=== PATIENT | male | born 1995 | race Caucasian/White ===

== ENCOUNTER 2021-03-07 11:29 | Emergency (ER) | payer OTHER, SELFPAY ==
[2021-03-07 11:33] VITALS: BP 131/77; PULSE 92; RESP 16; TEMP 36.8; O2SAT 98; BMI 33.0
[2021-03-07 12:13] LABS: IDNOW Serial# 9DD0AD1C; Strep A Nucleic Acid Negative (Negative)
--- NOTE | 2021-03-07 12:15 | ED_ITS ---
HPI - General Adult General Chief complaint: General Medical Stated complaint: Sore throat Time Seen by Provider: 03/07/21 11:42 Source: patient Mode of arrival: ambulatory Limitations: no limitations History of Present Illness HPI narrative: 25 y/o male presenting with severe sore throat x2 weeks. He has a longstanding history of Strep throat when he was a teen and in early 20's. He went to an Urgent care when it first started, had a negative Strep test and was given 10 days of amoxicillin. He states the antibiotics helped a little but as soon as he came off of them the pain and swelling worsened. He can see white spots all over his tonsils. He is having a hard time eating or drinking. He denies fever or chills, N/V. No SOB or difficulty breathing. No COVID exposure. MD complaint: sore throat Onset (ago): week(s) (2) Location: mouth Radiation: non-radiation Severity: severe Severity scale (1-10): 10 Quality: constant Pain Consistency: constant Relieving factors: cold therapy and medication Exacerbating factors: eating Associated symptoms: denies other symptoms Treatments prior to arrival: none Related Data Previous Rx's Medication Instructions Recorded amoxicillin 875 mg-potassium 1 tab PO BID #20 tab 02/22/21 clavulanate 125 mg tablet clindamycin HCl 300 mg PO Q6H 10 Days #40 cap 03/07/21 ibuprofen 600 mg PO Q8H PRN #10 tab 03/07/21 prednisone 50 mg PO DAILY #5 tab 03/07/21 Allergies Allergy/AdvReac Type Severity Reaction Status Date / Time No Known Allergies Allergy Verified 02/22/21 10:42 Review of Systems Review of Systems: Constitutional: No Fever, No Chills ENT/Mouth: +sore throat, No Rhinorrhea, + Swallowing Difficulty Cardiovascular: No Chest Pain, No SOB Respiratory: No Cough, No Sputum, No Wheezing, No dyspnea Gastrointestinal: No Nausea, No Vomiting, No abdominal Pain Musculoskeletal: No joint pain, No Myalgias Skin: No Skin Lesions, No rash Neuro: No Weakness, No Numbness Heme/Lymph: No Bruising, No Lymphadenopathy PMFSH Past Medical History Attestation statement: The following information was validated with the patient. Social History Social History Advance Directives: No Advance Directives Information Provided: No Physical Exam Vital Signs: Vital Signs: Last Vital Signs Temp 98.2 F 03/07/21 11:33 Pulse 92 03/07/21 11:33 Resp 17 03/07/21 13:27 BP 131/77 03/07/21 11:33 Pulse Ox 98 03/07/21 11:33 Body Mass Index 33.0 Appearance: Alert. Oriented X3. No acute distress. HEENT: posterior oropharynx with moderate generalized erythema, severe tonsillar swelling bilaterally with exudates. normal voice, handling secretions normally, mild submandibular LAD. CVS: Normal heart rate and rhythm. Pulses normal. Respiratory: No respiratory distress. Lungs CTAB Skin: Skin warm and dry. Normal skin color. Normal skin turgor. No rashes. Extremities: atraumatic, no LE edema Neuro: Oriented X 3. No motor deficit. No sensory deficit. Course Course Course Narrative: 25 y/o male presenting with severe sore throat x2 weeks s/p amoxicillin. Strep negative. [place] negative. No evidence of peritonsillar abscess, swelling is symmetrical and bilateral. Will treat with additional course of antibiotics with Clindamycin and PO steroids. Case d/w Dr. Abrams. No need for CT scan at this time. Patient encouraged to f/u with ENT. Stable for d/c home with close outpatient follow up. Medical Decision Making Lab Data Labs: Lab Results 03/07/21 03/07/21 03/07/21 Range/Units 11:54 11:54 12:29 COVID-19 (TRIP) Negative (Negative) COVID-19 Clin Com See Note Monoscreen Negative (Negative) S. pyogenes GrpA JAIRO Negative (Negative) Critical Care Time Critical Care Time Critical Care Time: No Discharge Plan Discharge Clinical Impression: Pharyngitis Qualifiers: Pharyngitis/tonsillitis etiology: unspecified etiology Qualified Code(s): J02.9 - Acute pharyngitis, unspecified Patient Disposition: Home, Self-Care Instructions: Pharyngitis (ED) Additional Instructions: Your Strep and [place] tests were negative. Start the prescribed antibiotic tonight. Use warm salt water gargles several times per day. Use over the counter Chloraseptic spray and Cepacol lozenges to help numb the back of your throat. Take ibuprofen every 8 hours as needed for pain - take with food. Take the prescribed prednisone starting tomorrow, you were given 1st dose today in the ER. Rest and stay hydrated, drink plenty of water. Prescriptions: New clindamycin HCl 300 mg capsule 300 mg PO Q6H 10 Days Qty: 40 RF: 0 ibuprofen 600 mg tablet 600 mg PO Q8H PRN (Reason: pain) Qty: 10 RF: 0 prednisone 50 mg tablet 50 mg PO DAILY Qty: 5 RF: 0 No Action amoxicillin-pot clavulanate [Augmentin] 875-125 mg tablet 1 tab PO BID Qty: 20 RF: 0 Referrals: Gume Haley [Physician] - 1 week (recurrent pharyngitis) Stand Alone Forms: Work/School Release Interventions: ED Discharge Assessment Last Done: 03/07/21 13:55 Discharge Date/Time: 03/07/21 14:00
[2021-03-07 12:19] LABS: COVID-19 Test Negative (Negative)
[2021-03-07] MEDS: Ketorolac Tromethamine 30 MG/ML VIAL IM (12:25)
[2021-03-07 13:21] LABS: Monotest Negative (Negative)
[2021-03-07 13:27] VITALS: RESP 17
[2021-03-07] MEDS: dexAMETHasone 2 MG TABLET 10 MG PO (13:51)
[2021-03-07] MEDS: Clindamycin HCL 300 MG CAPSULE 600 MG PO (13:51)
== END 2021-03-07 14:00 | disposition home or self-care (01) ==
PROVIDERS: Physician Assistant; Emergency Provider Emergency Medicine
DX: J20.9 Acute bronchitis, unspecified (principal); Z20.822 Contact with and (suspected) exposure to COVID-19
CPT/HCPCS: 36415; 86308; 87635; 87651; 96372; 99283; 99284; J1885; J8540

== ENCOUNTER 2023-04-20 08:05 | Outpatient (AMB) | payer SELFPAY ==
[2023-04-20 08:14] VITALS: BP 132/90; PULSE 77; TEMP 36.6; O2SAT 98
--- NOTE | 2023-04-20 08:15 | MHC.OFFWIV ---
Intake Vital Signs 04/20/23 08:14 Height 6 ft 1 in BP 132/90 H Blood Pressure Location Rt brachial Position Sitting Pulse 77 Pulse Source Pulse Oximeter Temp 97.9 F Temp Source Oral Pulse Oximetry (%) 98 Oxygen Delivery Method Room Air Intake Visit Reasons: EP ?Fungal Infection Intake Note: Pt is here today for fungal infection in groin loco. Patient Tobacco Use Status: Never used Tobacco Allergies No Known Allergies Allergy (Verified 02/22/21 10:42) Do you need a note to return to daycare/school/sports/work: No HPI HPI Comments History of Present Illness Details The patient presents to urgent care for evaluation of redness and scaliness to the tip of his penis. It is not itchy. He has a history of eczema but does not feel that this is eczema. No burning with urination no discharge. Patient like STD testing unrelated to the rash. He reports that he tries to get STD testing every summer [facility] Social History Patient Tobacco Use Status: Never used Tobacco Review of Systems Const Denies headache(s) ENT Denies headache(s) GI Denies abdominal pain and Denies diarrhea Neuro Denies headache(s) Physical Exam Vital Signs: Last Vital Signs Temp 97.9 F 04/20/23 08:14 Pulse 77 04/20/23 08:14 BP 132/90 H 04/20/23 08:14 Pulse Ox 98 04/20/23 08:14 Oxygen Delivery Method Room Air 04/20/23 08:14 Const General: healthy appearing and no acute distress HEENT Head: Yes normal to inspection Resp Effort & Inspection: normal respiratory effort and able to speak in complete sentences GI Inspection: Yes normal to inspection Other: Exam performed with a female certified medical assistant in the room. Circumcised penis. Light erythema noted on the glans slight bumpiness in appearance. non tender no d/c Assessment & Plan Assessment & Plan (1) Tinea cruris: Code(s): B35.6 - Tinea cruris Plan likwy fungal infection. rec OTC fungal crmx 2 wk. will std test as well Orders: Orders Hepatitis C Antibody Today Z71.1 - Person with feared health complaint in whom no diagnosis is made HIV Ab/Ag Today Z20.2 - Contact with and (suspected) exposure to infections with a predominantly sexual mode of transmission Syphilis Screen Today Z20.2 - Contact with and (suspected) exposure to infections with a predominantly sexual mode of transmission CT NG by PCR Today Z20.2 - Contact with and (suspected) exposure to infections with a predominantly sexual mode of transmission Coding Level of Care Code Est Pt Level 3 (79087) Diagnoses Tinea cruris B35.6
== END 2023-04-20 09:21 | disposition home or self-care (01) ==
PROVIDERS: Visit Provider Emergency Medicine
DX: B35.6 Tinea cruris (principal)
CPT/HCPCS: 99213

== ENCOUNTER 2023-04-20 08:32 | Outpatient (REF) | payer SELFPAY ==
[2023-04-21 03:03] LABS: Syphilis Screen Nonreactive (Nonreactive)
[2023-04-21 03:33] LABS: HIV AB/AG Nonreactive (Nonreactive); HIV Num 1 0.05 S/CO (0.00-0.99); ~Hepatitis C Antibody Nonreactive (Nonreactive)
== END 2023-04-20 08:33 | disposition home or self-care (01) ==
LOC: HO.HMGCLDS 08:32
PROVIDERS: Visit Provider Emergency Medicine
DX: Z11.4 Encounter for screening for human immunodeficiency virus [HIV] (principal); Z20.2 Contact with and (suspected) exposure to infections with a predominantly sexual mode of transmission; Z71.1 Person with feared health complaint in whom no diagnosis is made
CPT/HCPCS: 36415; 86780; 86803; 87389

== ENCOUNTER 2023-07-12 08:42 | Emergency (ER) | payer OTHER, SELFPAY ==
--- NOTE | ~2023-07-12 | CT_ITS ---
EXAMINATION: CT SOFT TISSUE NECK WITHOUT CONTRAST CLINICAL INFORMATION: Throat discomfort. Dislodged trachea. COMPARISON: None available. TECHNIQUE: Multidetector helical imaging was performed in the axial plane without intravenous contrast. Multiple axial reformats and coronal/sagittal reconstructions were created the technologist workstation for review. This CT examination was performed using dose optimization techniques as appropriate, variously including the following: *Automated exposure control. *Adjustment of mA and/or kV according to patient size (this includes techniques or standardized protocols for targeted exams where dose is matched to indication/reason for exam; i.e. extremities or head). *Use of iterative reconstruction technique. DLP: 760 mGy-cm FINDINGS: No significant cutaneous thickening or subcutaneous inflammation. No discrete fluid collection within the deep tissues of the neck. The premaxillary, retromaxillary, pterygopalatine fossa, orbital apical, parapharyngeal, and prelaryngeal adipose tissue is maintained. Normal appearance of the parotid, submandibular, and thyroid glands. Scattered subcentimeter lymph nodes bilaterally, none of which are pathologically enlarged. No demonstrated focal lesion within the intrinsic tissues of the tongue or floor of mouth. Normal mucosal contours of the pharynx and larynx. Normal appearance of the hyoid bone, thyroid cartilage, or cartilaginous trachea. The airways remains widely patent. No radiopaque foreign bodies. The atlantooccipital and atlantoaxial articulations remain well aligned. Straightening of the normal cervical lordosis. Otherwise, normal anatomic alignment. No evidence of acute fracture or subluxation of the cervical spine. The vertebral body heights are maintained. Moderate degenerative disc disease at C3-C4. Mild degenerative disc disease at C4-C5. There is no prevertebral soft tissue swelling. The visualized portion of the skull base is without significant abnormalities. The visualized paranasal sinuses are clear. The mastoid air cells and middle ear cavities are clear. No demonstrated significant periapical odontogenic disease. CT Upper Chest: The visualized lung apices and upper mediastinum are within normal limits. CT/CT soft tissue neck wo IV con IMPRESSION: 1. No demonstrated focal lesion, collection, pathologically enlarged lymphadenopathy, or inflammatory change within the soft tissues of the neck. 2. Mild to moderate degenerative spondyloarthropathy of the cervical spine.
[2023-07-12 08:54] VITALS: BP 148/93; PULSE 85; RESP 18; TEMP 36.6; O2SAT 99; BMI 33.0
--- NOTE | 2023-07-12 09:27 | ED_ITS ---
HPI - General Adult General Chief complaint: General Medical Stated complaint: sent by urgent care/ throat tumor? Time Seen by Provider: 07/12/23 09:16 Source: patient Mode of arrival: ambulatory Limitations: no limitations History of Present Illness HPI narrative: 27-year-old male with no significant pmhx presents to the ED today with complaint of throat discomfort x1 month after having a coughing fit where he felt his trachea pop out of place . States he began to panic, felt his trachea poking out of the front of his neck however was able to pop it back into place . Reports hearing a loud popping sound at that time. He was seen at the following morning and was recommended to f/u with PCP for further workup as he my have a throat tumor . Patient states that he has not been able to get into a PCP office until next year. Over the last month patient reports discomfort to his throat, some discomfort with swallowing stating that when he swallows he feels a rubbing sensation in his throat. Additionally endorses his cervical lymphnodes have felt like marbles . This feeling has now resolved. Has been tolerating p.o. intake. No nausea or vomiting. He admits to vaping 1 pod of nicotine a day x2 years. Additionally endorses smoking marijuana. Denies hx of acid reflux. No other physical complaints. Related Data Previous Rx's Medication Instructions Recorded clindamycin HCl 300 mg capsule 300 mg PO Q6H 10 days #40 caps 03/07/21 ibuprofen 600 mg tablet 600 mg PO Q8H PRN pain #10 tabs 03/07/21 prednisone 50 mg tablet 50 mg PO DAILY #5 tabs 03/07/21 Allergies Allergy/AdvReac Type Severity Reaction Status Date / Time No Known Allergies Allergy Verified 07/12/23 09:01 Review of Systems 2 Review of Systems: Constitutional: No fever, chills, fatigue, night sweats, weight changes ENT/Mouth: No ear pain, hearing loss, nasal congestion, sinus pain, rhinorrhea, sore throat, +throat discomfort Eyes: No eye pain, swelling, redness, vision changes, discharge Cardio: No chest pain, palpitations, SEWELL, orthopnea, peripheral edema Pulm: No SOB, cough, sputum, wheezing, dyspnea, hemoptysis GI: No nausea, vomiting, hematemesis, abdominal pain, diarrhea, constipation, hematochezia, melena : No irregular bleeding, dysuria, frequency, urgency, hesitancy, hematuria, flank pain, urinary flow changes, urinary incontinence or retention MSK: No back pain, neck pain, joint pain, myalgias Skin: No lesions, rashes Neuro: No weakness, numbness, paresthesias, LOC, dizziness, headache All other systems reviewed and are negative. [facility] Past Medical History Attestation statement: The following information was validated with the patient. Source: old records reviewed and nursing notes reviewed Social History Social History Unable to assess alcohol history related to: Unknown Patient Tobacco Use Status: Never used Tobacco Smoked in Last 30 Days: No Use of substances other than those prescribed or required for medical reasons: Unknown Advance Directives: No Physical Exam ED Vital Signs: Vital Signs - 24 hr 07/12/23 08:54 07/12/23 10:24 07/12/23 13:57 Temperature 97.9 F 98.8 F 98.8 F Pulse Rate 85 76 72 Respiratory Rate 18 16 16 Blood Pressure 148/93 H 131/81 135/79 Pulse Oximetry 99 97 98 Oxygen Delivery Method Room Air Room Air Room Air 07/12/23 15:23 Temperature Pulse Rate 70 Respiratory Rate 16 Blood Pressure 135/96 H Pulse Oximetry 97 Oxygen Delivery Method Room Air BMI result Body Mass Index 33.0 Vital signs stable Const General: cooperative, healthy appearing, comfortable, no acute distress, alert and awake Orientation/consciousness: patient oriented x3 Limitations: no limitations HENMT Head: Yes normal to inspection Ears: hearing grossly normal bilaterally General nose exam: Normal external nose present Mouth: Normal oral and palatal mucosa present and no trismus Eyes General: appearance normal, both eyes and all related structures Conjunctivae: conjunctivae normal Sclerae: sclerae normal Pupils: Equal, round and reactive pupils present Neck Neck: Yes normal visual inspection, Yes trachea midline, Yes supple and No tender Thyroid: Thyroid normal Lymphatic: no lymphadenopathy noted Resp Effort & Inspection: normal respiratory effort, able to speak in complete sentences and symmetric chest movement Auscultation: clear to auscultation bilaterally Cardio Rate: regular rate Rhythm: regular rhythm Peripheral pulses: radial pulses present Back/Spine/Pelvis Other: No midline spinous tenderness. No step off deformity. Skin General skin exam: no rashes or lesions noted Neuro General: patient oriented x3, gait normal and moves all extremities Cranial nerves: Yes CN's II-XII intact bilaterally and Yes Equal, round and reactive pupils present Extrem General: Yes normal to inspection and Yes full ROM Course Course Course Narrative: 1227-- CBC without leukocytosis or anemia. Chemistry without acute electrolyte abnormality requiring intervention. TSH within normal limits. Awaiting radiologist's interpretation of CT scan. 1306-- Physician observation initiated pending CT read. 1550-- CT soft tissue neck unremarkable. Does show mild degenerative changes of the c spine. Patient informed of unremarkable work up. Advised him to follow up with PCP as scheduled. VSS. Discussed strict return precautions. All questions answered at this time. Patient is agreeable w/ disposition and stable for discharge. Procedures Smoking Cessation Time Spent Discussing Smoking Cessation w/Patient (min): 5 Patient Acknowledges Need for Cessation: Yes Medical Decision Making Medical Decision Making [facility] Narrative: 27-year-old male with no significant pmhx presents to the ED today with complaint of throat discomfort x1 month after having a coughing fit where he felt his trachea pop out of place . VSS. Thyroid normal. Trachea midline. Posterioropharynx without erythema/edema, uvula midline, controlling secretions and speaking in complete sentences. Lungs CTA b/l. No rashes. Exam nonfocal. Clinical concern for thyroid nodule, GERD, cartilage abnormality, esophageal stricture, zenker's diverticulum. Unlikely [employer]ELD[employer]ER, retropharyngeal abscess, carcinoma, airway compromise, barretts esophagus, CVA/TIA, hiatal hernia. Plan at this time is basic labs, TSH, and imaging. Differential Diagnosis Differential Diagnoses: The differential diagnosis associated with the presentation includes As above. Admission/Observation Not included. Lab Data [facility] Lab Attestation statement: I reviewed the patient's lab results. As above. 07/12/23 10:06 07/12/23 10:06 Labs: Lab Results 07/12/23 Range/Units 10:06 WBC 5.8 (4.8-10.8) X10*3/uL RBC 5.07 (4.60-5.80) X10*6/uL Hgb 14.6 (14.0-18.0) g/dl Hct 43.3 (42.0-52.0) % MCV 85.4 (80.0-98.0) fL MCH 28.8 (27.0-33.0) pg MCHC 33.7 (31.0-36.0) g/dl RDW 12.8 (11.0-16.0) % Plt Count 218 (160-400) X10*3/uL MPV 10.8 (9.4-12.4) fL Immature Gran % (Auto) 0.2 (0.0-0.4) % Neut % (Auto) 55.4 (45-73) % Lymph % (Auto) 32.8 (20-40) % Williams % (Auto) 9.0 (2-11) % Eos % (Auto) 2.1 (0-4) % Baso % (Auto) 0.5 (0-2) % Lymph # (Auto) 1.9 (1.2-4.9) X10*3/uL Williams # (Auto) 0.5 (0.1-1.2) X10*3/uL Eos # (Auto) 0.1 (0.0-0.4) X10*3/uL Baso # (Auto) 0.0 (0.0-0.2) X10*3/uL Abs Immat Gran (auto) 0.01 (0.00-0.03) X10*3/uL Absolute Neuts (auto) 3.2 (2.0-8.3) x10*3/uL Absolute Nucleated RBC 0.000 (0.0-0.012) X10*3/uL Nucleated RBC % (auto) 0.0 (0.0-0.2) /100WBC Sodium 140 (135-145) mmol/L Potassium 4.2 (3.3-5.1) mmol/L Chloride 104 (96-108) mmol/L Carbon Dioxide 26 (22-29) mmol/L Anion Gap 14 (12-20) BUN 14 (9-16) mg/dL Creatinine 0.95 (0.5-1.4) mg/dL Estim Creat Clear Calc 152.7 Estimated GFR > 60 Random Glucose 99 (60-115) mg/dL Calcium 9.7 (8.4-10.2) mg/dL Magnesium 2.1 (1.6-2.6) mg/dL TSH 0.97 (0.32-4.0) uIU/mL Independent Interpretation I performed an independent interpretation of an: CT Scan Interpretation: CT soft tissues neck showing degenerative changes within the cervical spine, agree with radiologist's interpretation. Radiology Impression Discussion of test interpretation with radiology: I have reviewed the radiologist's reading. Radiologist Impression: CT soft tissue neck wo IV con IMPRESSION: 1. No demonstrated focal lesion, collection, pathologically enlarged lymphadenopathy, or inflammatory change within the soft tissues of the neck. 2. Mild to moderate degenerative spondyloarthropathy of the cervical spine. External Record Review External record reviewed: Inpatient record Critical Care Time Critical Care Time Critical Care Time: No Discharge Plan Discharge Clinical Impression: Pain in throat Patient Disposition: Home, Self-Care Additional Instructions: Your lab work today is reassuring. We checked your thyroid levels and they returned within normal limits. This CT of your neck did not show acute pathology however did show some degenerative changes within the cervical spine which she were informed about. You were also provided with the CT read. Please follow-up with your primary care physician as needed. You have been provided with a referral to a primary care physician. You may call them to make an appointment. They will not call you. Return to the emergency department if your symptoms persist or worsen. In case of emergency call 911. Prescriptions: No Action clindamycin HCl 300 mg capsule 300 mg PO Q6H 10 Days Qty: 40 0RF ibuprofen 600 mg tablet 600 mg PO Q8H PRN (Reason: pain) Qty: 10 0RF prednisone 50 mg tablet 50 mg PO DAILY Qty: 5 0RF Stand Alone Forms: Work/School Release Interventions: ED Discharge Assessment Last Done: 07/12/23 16:04 Discharge Date/Time: 07/12/23 16:04
[2023-07-12 10:10] LABS: MANUAL DIFF FLAG NO
[2023-07-12 10:12] LABS: Basophils Percent Auto 0.5 % (0-2); Eosinophils Absolute Auto 0.1 X10*3/uL (0.0-0.4); Eosinophils Percent Auto 2.1 % (0-4); Hematocrit 43.3 % (42.0-52.0); Hemoglobin 14.6 g/dl (14.0-18.0); Imm Gran Abs Auto 0.01 X10*3/uL (0.00-0.03); Imm Gran Pct Auto 0.2 % (0.0-0.4); Lymphocytes Absolute Auto 1.9 X10*3/uL (1.2-4.9); Lymphocytes Percent Auto 32.8 % (20-40); Mean Corpuscular HGB Conc 33.7 g/dl (31.0-36.0); Mean Corpuscular Hemoglobin 28.8 pg (27.0-33.0); Mean Corpuscular Volume 85.4 fL (80.0-98.0); Mean Platelet Volume 10.8 fL (9.4-12.4); Monocytes Absolute Auto 0.5 X10*3/uL (0.1-1.2); Neutrophils Absolute Auto 3.2 x10*3/uL (2.0-8.3); Neutrophils Percent Auto 55.4 % (45-73); Platelet Count 218 X10*3/uL (160-400); Red Blood Count 5.07 X10*6/uL (4.60-5.80); Red Cell Distribution Width 12.8 % (11.0-16.0); White Blood Count 5.8 X10*3/uL (4.8-10.8)
[2023-07-12 10:24] VITALS: BP 131/81; PULSE 76; RESP 16; TEMP 37.1; O2SAT 97
[2023-07-12 10:46] LABS: Anion Gap 14 (12-20); Blood Urea Nitrogen 14 mg/dL (9-16); Calcium 9.7 mg/dL (8.4-10.2); Carbon Dioxide 26 mmol/L (22-29); Chloride 104 mmol/L (96-108); Creatinine Clr Calc Pharmacy 152.7; Estimated Glomerular Filt Rate > 60; Glucose Random 99 mg/dL (60-115); Magnesium 2.1 mg/dL (1.6-2.6); Potassium 4.2 mmol/L (3.3-5.1); Sodium 140 mmol/L (135-145)
[2023-07-12 11:00] LABS: TSH reflex Free T4 0.97 uIU/mL (0.32-4.0)
[2023-07-12 13:57] VITALS: BP 135/79; PULSE 72; RESP 16; TEMP 37.1; O2SAT 98
[2023-07-12 15:23] VITALS: BP 135/96; PULSE 70; RESP 16; O2SAT 97
== END 2023-07-12 16:04 | disposition home or self-care (01) ==
PROVIDERS: Physician Assistant Medical; Emergency Provider Emergency Medicine Emergency Medical Services; PCP Internal Medicine
DX: J02.9 Acute pharyngitis, unspecified (principal)
CPT/HCPCS: 36415; 70490; 80048; 83735; 84443; 85025; 99284

== ENCOUNTER 2023-12-29 09:52 | Outpatient (AMB) | payer OTHER, SELFPAY ==
[2023-12-29 09:55] VITALS: BP 118/72; PULSE 81; O2SAT 98; BMI 36.5
--- NOTE | 2023-12-29 09:55 | MHC.PC.OV ---
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 Allergies No Known Allergies Allergy (Verified 12/29/23 10:28) Medication List - Last Reconciled 12/29/23 by Fausto Man MD No Known Home Meds Tobacco use date assessed: 12/29/23 Dental Screening Dental Screen Date: 12/29/23 Did you have a dental visit in the last 12 months?: No Did you have a dental problem in the last 6 months where you did not have access to dental care?: No HPI [employer]-Requesting Physical Exam HPI Details Patient comes in today for his annual physical examination and to establish care - is a new patient to the practice States that he feels okay Relates that back in July 2023, he felt his trachea / Kory's apple pop out of place after a violent coughing fit and he states that he was somehow able to pop it back into place but since then, has been experiencing frequent throat discomfort when swallowing - described it as a recurrent rubbing sensation in his throat especially when he swallows He went to the ER after initially going to urgent care and ended up getting a CT of the soft tissues of the neck, which came out normal States that his throat symptoms have continued to recur since He has tried reaching out to ENT to schedule an appointment but was advised that he will need to see his PCP first due to insurance restrictions He denies any headaches or dizziness; denies any sore throat or any recent cough/cold symptoms Denies any chest pains, no SOB No nausea/vomiting, no abdominal pain No change in bowel habits noted He denies any acute urinary symptoms Adds that he's had some recurrent eczematous rash, especially on his hands Recalls being prescribed some unrecalled eczema cream in the past and he would like to get some Rx that he can use PRN when his eczema flares up [facility] Medical History (Updated 12/29/23 @ 11:03 by Fausto Man MD) Obesity (BMI 30-39.9) Atopic dermatitis Surgical History (Updated 12/29/23 @ 10:37 by Fausto Man MD) Hx of peritonsillar abscess drainage Family History (Updated 12/29/23 @ 10:38 by Fausto Man MD) Paternal Grandfather Prostate cancer Social History (Updated 12/29/23 @ 10:39 by Fausto Man MD) Housing: Condominium Alcohol intake: never Patient Tobacco Use Status: Never used Tobacco Substance Use Type: Marijuana service: No Current occupational status: employed Cognitive needs: No Hearing needs: No Vision needs: No Questionnaire PHQ-9 Over the last 2 weeks, how often have you been bothered by any of the following problems? 1. Little interest or pleasure in doing things: not at all 2. Feeling down, depressed, or hopeless: not at all 3. Trouble falling or staying asleep, or sleeping too much: not at all 4. Feeling tired or having little energy: not at all 5. Poor appetite or overeating: not at all 6. Feeling bad about yourself - or that you are a failure or have let yourself or your family down: not at all 7. Trouble concentrating on things, such as reading the newspaper or watching television: not at all 8. Moving or speaking so slowly that other people could have noticed. Or the opposite - being so fidgety or restless that you have been moving around a lot more than usual: not at all 9. Thoughts that you would be better off or of hurting yourself in some way: not at all Total score: 0 Depression Screening Interpretation: Negative Depression Screening Done: Yes 36005 - PHQ-9 Billing: Yes Source: Developed by Drs. Vance Bates, Daniella Tesfaye, Waldemar Estrada and colleagues, with an educational jeremiah from [email or web address] Thrive Questionnaire Date Thrive assessed: 12/29/23 I am a: Patient What is your living situation today?: I have a steady place to live Within the past 12 months, did the food you bought not last and you didn't have the money to get more?: Never true Within the past 12 months, did you worry whether your food would run out before you got money to buy more?: Never true Do you have trouble paying for medicines?: No Do you have trouble getting transportation to medical appointments?: No Do you have trouble paying your heating and electricity bill?: No Do you have trouble taking care of your child, family member or friend?: No Do you have trouble with day-to-day activities such as bathing, preparing meals, shopping, managing finances, etc.?: No Are you currently unemployed and looking for a job?: No Are you interested in more education?: No Please select the resources that you would like help with: None Currently or been in a relationship where the following occur: no concerns reported THRIVE Score: 0 AUDIT C Alcohol Use Questionnaire (AUDIT-C) 1. How often do you have a drink containing alcohol?: Never 2. How many drinks containing alcohol do you have on a typical day when you are drinking?: 1 or 2 (0) 3. How often do you have six or more drinks on one occasion?: Never Total Score: 0 Score Reviewed/Action Taken: Yes CASIE-7 AMB Questionnaire CASIE-7 Date CASIE - 7 assessed: 12/29/23 Feeling nervous, anxious, or on edge: 0 = Not at all Not being able to stop or control worryin = Not at all Worrying too much about different things: 0 = Not at all Trouble relaxin = Not at all Being so restless that it is hard to sit still: 0 = Not at all Becoming easily annoyed or irritable: 0 = Not at all Feeling afraid as if something awful might happen: 0 = Not at all Total CASIE-7 score (0-4 normal; 5-9 mild; 10-14 moderate; 15-21 severe): 0 Source: Developed by Drs. Vance Bates, Daniella Tesfaye, Waldemar Estrada and colleagues, with an educational jeremiah from [email or web address] CASIE-7 Assessment Billing CASIE-7 Assessment Tool: CASIE-7 Assessment 19402 Review of Systems Const Denies chills, Denies fatigue, Denies fever(s), Denies headache(s), Denies malaise and Denies weakness Eyes Denies blurry vision, Denies change in vision, Denies irritation and Denies itchy eyes ENT Denies dysphagia, Denies dizziness, Denies otalgia, Denies headache(s), Denies nasal congestion, Denies neck pain, Denies odynophagia, Denies sore throat (but reports on and off throat discomfort - see HPI for details) and Denies throat swelling Card Denies chest pain, Denies rapid heart rate, Denies irregular heart rhythm, Denies palpitations and Denies dyspnea Resp Denies chest congestion, Denies cough, Denies dyspnea and Denies wheezing GI Denies abdominal pain, Denies bloating, Denies constipation, Denies dysphagia, Denies heartburn, Denies diarrhea, Denies nausea, Denies odynophagia and Denies vomiting Denies hematuria, Denies difficulty urinating, Denies dysuria, Denies urinary frequency and Denies urinary urgency Musc Denies back pain, Denies arthralgias, Denies joint swelling, Denies muscle weakness and Denies neck pain Skin/Breast Denies change in pigmentation, Denies lesions, Reports rash (on and off eczematous rash) and Denies unusual bruising Neuro Denies dizziness, Denies headache(s), Denies paresthesias and Denies weakness Psych Denies anxiety and Denies depression Endo Denies fatigue and Denies palpitations Aller/Immun Denies itchy eyes, Denies throat swelling and Denies wheezing Physical exam (Primary Care) Vital Signs: Last Vital Signs Pulse 81 12/29/23 09:55 BP 118/72 12/29/23 09:55 Pulse Ox 98 12/29/23 09:55 Oxygen Delivery Method Room Air 12/29/23 09:55 BMI result Body Mass Index 36.5 Tobacco/Smoking Status: Tobacco use Status Tobacco use date assessed 12/29/23 12/29/23 09:57 Patient Tobacco Use Status Never used Tobacco 12/29/23 10:07 PHQ-9: PHQ-9 Score PHQ-9: Total score 0 12/29/23 10:07 Depression Screening Interpretation: Negative Thrive Assessment: Date of Thrive Assessment Date Thrive assessed 12/29/23 12/29/23 09:57 Currently or been in a relationship where the following occur: no concerns reported Const General: no acute distress, alert and awake Orientation/consciousness: patient oriented x3 HENMT Head: Yes normocephalic and Yes atraumatic Ears: external ears normal, TM's normal bilaterally and EAC's normal General nose exam: No nasal discharge present Face and sinus: Yes normal facial exam and Yes sinuses nontender Teeth and gingiva: dentition normal Throat: Yes posterior oropharynx normal and Yes tonsils normal (no TP congestion) Eyes Eyelids: Yes eyelids normal Conjunctivae: conjunctivae normal Pupils: Equal, round and reactive pupils present EOM: EOMs intact bilaterally Neck Neck: Yes no lymphadenopathy and Yes supple Thyroid: Thyroid normal Resp Auscultation: clear to auscultation bilaterally, no rales and no wheezes Cardio Rate: regular rate Rhythm: regular rhythm Heart sounds: no murmurs GI Palpation (GI): Soft to palpation, nontender and No hepatosplenomegaly present Auscultation: normal bowel sounds General: Yes no CVA tenderness Back/Spine/Pelvis Back: no CVA tenderness Thoracic/Lumbar Spine: thoracic and lumbar spine normal to inspection Skin Lesions: no lesions Rashes: no rashes Neuro General: patient oriented x3, moves all extremities, no focal motor deficits and CN's II-XI intact bilaterally Cranial nerves: Yes Equal, round and reactive pupils present Cognition (Neuro): normal cognition Gait exam (Neuro): Normal gait present Extrem General: Yes no clubbing, cyanosis or edema Assessment and Plan Assessment & Plan (1) Annual physical exam: Code(s): Z00.00 - Encounter for general adult medical examination without abnormal findings Plan: Check labs He is advised that we will reach out to him if anything pertinent or significant comes up on his labs (2) Throat discomfort: Code(s): R07.0 - Pain in throat Plan: Soft tissues neck CT done back in July 2023 revealed NO demonstrated focal lesion, collection, pathologically enlarged lymphadenopathy, or inflammatory change within the soft tissues of the neck. There is mild to moderate degenerative spondyloarthropathy of the cervical spine noted Will refer him to ENT for further evaluation - may need direct laryngoscopy done to further evaluate his recurrent throat symptoms Have also advised patient to try to obtain a hard copy of his neck CT and bring it with him to his ENT appointment (3) Atopic dermatitis: Code(s): L20.9 - Atopic dermatitis, unspecified Qualifiers: Atopic dermatitis type: unspecified Qualified Code(s): L20.9 - Atopic dermatitis, unspecified Plan: Will start patient on Triamcinolone acetonide 0.5% cream apply to rash BID-TID PRN (4) Obesity (BMI 30-39.9): Code(s): E66.9 - Obesity, unspecified Plan: Discussed diet/exercise as tolerated/lose weight Plan To return in 1 year for his next annual physical examination Orders: Orders Complete Blood Count Auto Diff Today D64.9 - Anemia, unspecified, Z00.00 - Encounter for general adult medical examination without abnormal findings Comprehensive [place]. Panel Fast Today E78.00 - Pure hypercholesterolemia, unspecified, Z00.00 - Encounter for general adult medical examination without abnormal findings Lipid Panel Today E78.00 - Pure hypercholesterolemia, unspecified, Z00.00 - Encounter for general adult medical examination without abnormal findings UA CC w/rflx Micro + Cult Today R30.0 - Dysuria, Z00.00 - Encounter for general adult medical examination without abnormal findings TSH reflex Free T4 Today E78.00 - Pure hypercholesterolemia, unspecified, Z00.00 - Encounter for general adult medical examination without abnormal findings Vitamin D 25-OH Total Today E55.9 - Vitamin D deficiency, unspecified, Z00.00 - Encounter for general adult medical examination without abnormal findings Referrals Ear/Nose/Throat Referral R07.0 - Pain in throat, R13.10 - Dysphagia, unspecified Medications: New triamcinolone acetonide 0.5% 1 appl topical TID PRN 30 grams 2RF rash Coding Level of Care Code New Pt Prev Care 18-39yr(70987 Diagnoses Annual physical exam Z00.00 Throat discomfort R07.0 Atopic dermatitis, unspecified type L20.9 Atopic dermatitis type: unspecified Obesity (BMI 30-39.9) E66.9 Additional Codes CASIE-7 Assessment Billing - CASIE-7 Assessment Tool: CASIE-7 Assessment 44336 ([id number])
== END 2023-12-29 10:50 | disposition home or self-care (01) ==
PROVIDERS: PCP Internal Medicine; Visit Provider Internal Medicine
DX: Z00.00 Encounter for general adult medical examination without abnormal findings (principal); R07.0 Pain in throat; E66.9 Obesity, unspecified; Z68.36 Body mass index [BMI] 36.0-36.9, adult; L20.9 Atopic dermatitis, unspecified
CPT/HCPCS: 99395

== ENCOUNTER 2024-02-02 12:46 | Outpatient (REF) | payer OTHER, SELFPAY ==
[2024-02-02 13:04] LABS: MANUAL DIFF FLAG NO
[2024-02-02 14:27] LABS: Appearance Urine Clear; Color Urine Yellow; Glucose Urine UA Negative (Negative); Leukocyte Esterase Urine Negative (Negative); Nitrite Urine Negative (Negative); PH 5.5 (5.0-9.0); Specific Gravity - Urine 1.015 (1.005-1.025); Urine Blood Negative (Negative); Urine Ketones Negative (Negative); Urine Protein Negative (Neg-Trace)
[2024-02-02 14:29] LABS: Basophils Percent Auto 0.4 % (0-2); Eosinophils Absolute Auto 0.1 X10*3/uL (0.0-0.4); Eosinophils Percent Auto 1.6 % (0-4); Hematocrit 42.9 % (42.0-52.0); Hemoglobin 14.6 g/dl (14.0-18.0); Imm Gran Abs Auto 0.01 X10*3/uL (0.00-0.03); Imm Gran Pct Auto 0.2 % (0.0-0.4); Lymphocytes Absolute Auto 2.6 X10*3/uL (1.2-4.9); Lymphocytes Percent Auto 47.9 % (20-40); Mean Corpuscular Hemoglobin 29.2 pg (27.0-33.0); Mean Corpuscular Volume 85.8 fL (80.0-98.0); Monocytes Absolute Auto 0.4 X10*3/uL (0.1-1.2); Monocytes Percent Auto 6.9 % (2-11); Neutrophils Absolute Auto 2.4 x10*3/uL (2.0-8.3); Platelet Count 239 X10*3/uL (160-400); Red Cell Distribution Width 12.9 % (11.0-16.0); White Blood Count 5.5 X10*3/uL (4.8-10.8)
[2024-02-02 15:07] LABS: Alanine Aminotransferase 35 U/L (0-40); Albumin Level 4.5 g/dL (3.5-5.0); Alkaline Phosphatase 44 U/L (39-117); Anion Gap 11 (12-20); Aspartate Amino Transferase 22 U/L (5-37); Bilirubin Total 0.8 mg/dL (0.0-1.0); Blood Urea Nitrogen 8 mg/dL (9-16); Calcium 9.5 mg/dL (8.4-10.2); Carbon Dioxide 26 mmol/L (22-29); Chloride 107 mmol/L (96-108); Cholesterol 144 mg/dL (<200); Estimated Glomerular Filt Rate > 60; Glucose Fasting 84 mg/dL (60-99); HDL Cholesterol 32 mg/dL (>40); LDL Cholesterol Calculated 90 mg/dL (<100); Potassium 3.9 mmol/L (3.3-5.1); Sodium 140 mmol/L (135-145); Total Protein 7.7 g/dL (6.5-8.0); Triglycerides 111 mg/dL (<150)
[2024-02-02 15:09] LABS: TSH reflex Free T4 0.95 uIU/mL (0.32-4.0); Vitamin D 25-OH Total 14.9 ng/mL (>30)
== END 2024-02-02 12:47 | disposition home or self-care (01) ==
LOC: HO.LAB 12:46
PROVIDERS: PCP Internal Medicine; Visit Provider Internal Medicine
DX: Z00.00 Encounter for general adult medical examination without abnormal findings (principal); D64.9 Anemia, unspecified; E78.00 Pure hypercholesterolemia, unspecified; E55.9 Vitamin D deficiency, unspecified; R30.0 Dysuria; Z20.2 Contact with and (suspected) exposure to infections with a predominantly sexual mode of transmission
CPT/HCPCS: 36415; 80053; 80061; 81003; 82306; 84443; 85025

== ENCOUNTER 2024-02-10 07:34 | Outpatient (REF) | payer OTHER, SELFPAY ==
[2024-02-12 04:22] LABS: Syphilis Screen Nonreactive (Nonreactive)
[2024-02-12 04:32] LABS: HBc Num1 0.11 S/CO (0.00-0.79); HBsAGNum1 0.24 S/CO (0.00-0.99); HIV AB/AG Nonreactive (Nonreactive); HIV Num 1 0.07 S/CO (0.00-0.99); Hepatitis B Core Antibody Nonreactive (Nonreactive); Hepatitis B Surface Antigen Negative (Negative); ~HepC Num1 0.13 S/CO (0.00-0.79); ~Hepatitis B Surface Antibody REACTIVE (Nonreactive); ~Hepatitis C Antibody Nonreactive (Nonreactive)
== END 2024-02-10 07:35 | disposition home or self-care (01) ==
LOC: HO.LAB 07:34
PROVIDERS: PCP Internal Medicine; Visit Provider Internal Medicine
DX: Z20.2 Contact with and (suspected) exposure to infections with a predominantly sexual mode of transmission (principal)
CPT/HCPCS: 36415; 86704; 86706; 86780; 86803; 87340; 87389

== ENCOUNTER 2024-02-20 12:24 | Outpatient (AMB) | payer OTHER, SELFPAY ==
[2024-02-20 12:45] VITALS: BP 126/72; PULSE 71; TEMP 36.8; O2SAT 98; BMI 37.5
--- NOTE | 2024-02-20 12:45 | AM.OFFWIN_ITS ---
Intake Vital Signs 02/20/24 12:45 Height 6 ft 1 in Weight 284 lb BMI 37.5 BP 126/72 Blood Pressure Location Lt brachial Position Sitting Pulse 71 Pulse Source Pulse Oximeter Temp 98.3 F Temp Source Temporal Artery Scan Pulse Oximetry (%) 98 Oxygen Delivery Method Room Air Intake Visit Reasons: Eczema all over body Intake Note: pt is here today for eczema all over body started 3 days ago Patient Tobacco Use Status: Never used Tobacco Allergies No Known Allergies Allergy (Verified 02/20/24 13:42) Medication List - Last Reconciled 02/20/24 by CARLOS De León cholecalciferol (vitamin D3) 50 mcg PO DAILY 90 days triamcinolone acetonide 0.5% 1 appl topical TID PRN Do you need a note to return to daycare/school/sports/work: No HPI HPI Comments History of Present Illness Details patient is a 28-year-old male in today for sick visit. Patient reports that for the past 2 weeks he has developed eczema on his hands and back. Has history of eczema in the past states that it usually is contained to his hands however he has noticed patches and spots on his back. Does have triamcinolone prescription at home has been utilizing it for spot treatment feels like it has cause the eczema to stop spreading however it has not improved. Patient denies any tingling or numbness. Denies any drainage from the lesions. [facility] Medical History Obesity (BMI 30-39.9) Atopic dermatitis Surgical History Hx of peritonsillar abscess drainage Family History Paternal Grandfather Prostate cancer Social History Housing: Condominium Alcohol intake: never Patient Tobacco Use Status: Never used Tobacco Substance Use Type: Marijuana service: No Current occupational status: employed Cognitive needs: No Hearing needs: No Vision needs: No Review of Systems Const All systems reviewed & are unremarkable except as noted in HPI and below Physical Exam Vital Signs: Last Vital Signs Temp 98.3 F 02/20/24 12:45 Pulse 71 02/20/24 12:45 BP 126/72 02/20/24 12:45 Pulse Ox 98 02/20/24 12:45 Oxygen Delivery Method Room Air 02/20/24 12:45 BMI result Body Mass Index 37.5 Const Other: Appearance: Alert.? Oriented X3.? No acute distress.? Neck: Normal inspection.? Neck supple.? Respiratory: No respiratory distress.? Abdomen: Soft and nontender.? Skin: Skin warm and dry.? Normal skin color.? Normal skin turgor.? Extremities: Smal dime sized lesions, scaling, raised, on bilateral hands and back. No discharge or signs of infeciton. Neuro: Oriented X 3.? No motor deficit.? No sensory deficit. CN 2-12 intact Assessment & Plan Assessment & Plan (1) Atopic dermatitis: Comment: Will give patient prednisone taper. Patient has been instructed to continue using triamcinolone for topical spot treatment. Patient has been instructed to follow-up in the walk-in clinic if does not notice improvement over the next 3 days. Code(s): L20.9 - Atopic dermatitis, unspecified Qualifiers: Atopic dermatitis type: unspecified Qualified Code(s): L20.9 - Atopic dermatitis, unspecified Plan: Insert Medicare Medications: New prednisone 10 mg orally Take 4 tabs for four days, Take 2 tabs for four days, take 1 tab for four days.; see taper instructions 28 tabs 0RF Coding Level of Care Code Est Pt Level 3 (63954) Diagnoses Atopic dermatitis, unspecified type L20.9 Atopic dermatitis type: unspecified Time Spent (min) 21
== END 2024-02-20 13:57 | disposition home or self-care (01) ==
PROVIDERS: PCP Internal Medicine; Visit Provider Nurse Practitioner Primary Care
DX: L20.9 Atopic dermatitis, unspecified (principal)
CPT/HCPCS: 99213

== ENCOUNTER 2024-03-25 12:23 | Outpatient (AMB) | payer OTHER, SELFPAY ==
--- NOTE | 2024-03-25 12:29 | MHC.OFFWIV ---
Intake Vital Signs 03/25/24 12:30 Height 6 ft 1 in Weight 293 lb BMI 38.7 Pulse 77 Pulse Source Pulse Oximeter Temp 98 F Temp Source Oral Pulse Oximetry (%) 96 Oxygen Delivery Method Room Air Intake Visit Reasons: EP eczema spreading Intake Note: Pt is here today for Eczema on back and torso, noticed few days ago Patient Tobacco Use Status: Never used Tobacco Allergies No Known Allergies Allergy (Verified 03/25/24 12:31) Do you need a note to return to daycare/school/sports/work: No HPI HPI Comments History of Present Illness Details Patient presents to the walk-in today for sick visit complaining of head, to chest and back for last couple of days was evaluated here 1 month ago for same, given prednisone and symptoms resolved. Does work outside in the heat denies any other rash, fever, dizziness, weakness, chest pain, shortness of breath PFSH Medical History Obesity (BMI 30-39.9) Atopic dermatitis Surgical History Hx of peritonsillar abscess drainage Family History Paternal Grandfather Prostate cancer Social History Housing: Condominium Alcohol intake: never Patient Tobacco Use Status: Never used Tobacco Substance Use Type: Marijuana service: No Current occupational status: employed Cognitive needs: No Hearing needs: No Vision needs: No Review of Systems Const All systems reviewed & are unremarkable except as noted in HPI and below Physical Exam Vital Signs: Last Vital Signs Temp 98 F 03/25/24 12:30 Pulse 77 03/25/24 12:30 Pulse Ox 96 03/25/24 12:30 Oxygen Delivery Method Room Air 03/25/24 12:30 BMI result Body Mass Index 38.7 General: awake, alert, oriented. Answers questions appropriately. Fully engaged in examination. Skin: warm, dry, intact. diffuse macular papular rash noted to back and upper torso. No drainage, surrounding erythema or lymphadenopathy HEENT: Normocephalic. Hearing intact. Cardiac: External chest normal in appearance. Respiratory: No cough, audible wheezing or stridor. Abdomen: without gross distension. MS: No obvious swelling or deformities. Neurological: Oriented to person, place, time and situation. Thought process intact. No gait abnormalities appreciated. Psychiatric: Appropriate mood and affect. Good judgment and insight. Assessment & Plan Assessment & Plan (1) Dermatitis: Code(s): L30.9 - Dermatitis, unspecified Plan prednisone taper provided, patient advised on use follow up with Dermatology. All questions and concerns were answered, patient agrees with the plan. Return here for any new or worsening symptoms Medications: New prednisone see taper instructions orally daily; 4 tabl x 3days, 3 tabl daily x 3 days, then 2 tabl daily for 2 days, then 1 tabl daily x 3 days 10 mg PO DIRECTED 30 tabs 0RF Coding Level of Care Code Est Pt Level 3 (80298) Diagnoses Dermatitis L30.9
[2024-03-25 12:30] VITALS: PULSE 77; TEMP 36.6; O2SAT 96; BMI 38.7
== END 2024-03-25 13:54 | disposition home or self-care (01) ==
PROVIDERS: PCP Internal Medicine; Visit Provider Registered Nurse Emergency
DX: L30.9 Dermatitis, unspecified (principal)
CPT/HCPCS: 99213

== ENCOUNTER 2024-10-11 13:11 | Outpatient (AMB) | payer OTHER, SELFPAY ==
--- OUTSIDE RECORDS SUMMARY | 2024-10-11 13:27 | XMS_ITS | Data Portability ---
Author Organization [place] - [facility], Allergy Address [address] [address] Care Team Providers Care Estimator Binding Name Role Phone DEANNE NUÑEZ Referring Provider Assessment No assessment recorded. Plan of Treatment Reminders Order Date Submit Date Provider Last Modified By Organization Details Last Modified Time Details Appointments None record ed. Lab None record ed. Referral None record ed. Procedures None record ed. Surgeries None record ed. Imaging None record ed. Medication Orders None record ed. Patient TargetsNo targets recorded. Patient InstructionsNo instructions recorded. Reason for Referral None Reported. Results Created Date Observation Date Name Description Value Unit Range Abnormal Flag Note LastModifiedBy Organization Detail LastModifiedTime 07/11/2007/12/2023 CT, neck, soft tissu e, w/o contr ast No observ ation record ed. [email or web address] [facility] [address] [facility] [address], [place], [address], 07/12/2024 08:57:14 07/12/20 24 07/12/2023 CT, neck, soft tissu e, w/o contr ast No observ ation record ed. [email or web address] Not Available 01/2024 09:04:33 Result Notes None recorded. 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 Procedures Surgical History Date Name Laterality Status Provider Name and Address Organization Details Recorded Time 07/11/2024 FFL_RE completed MARCOS BARTHOLOMEW MD [address] [place] [address], [place], [address], [facility] 07/11/2024 11:49:39 Imaging Results Imaging Date Name Status LastModified by Organiz ation Details LastModified Time 07/12/2023 CT, neck, soft tissue, w/o contrast completed [email or web address] [facility] [address] [address], [place], [address], 07/12/2024 08:57:14 07/12/2023 CT, neck, soft tissue, w/o contrast completed [email or web address] Information not available 07/16/2024 09:04:33 Procedure Notes None recorded. Medical Equipment None Reported. Medications Name Sig Start Date Stop Date Status Note LastModified by Organization Details LastModified Time triamcinolone acetonide 0.5 % topical cream active Not Available Not Availabl e Not Available Vitals Date Recorded Body height Body mass index (BMI) Body weight Provider Name and Address Organization Details Last Updated DateTime 07/11/2024 185.42 cm 39.6 kg/m2 906477.71 g Erin Torres [place] - [facility] 07/11/2024 11:28:26 Social History None recorded. Functional Status None recorded. Mental Status None recorded. Family History Nothing Reported. Medical History No medical history recorded. Past Encounters Encounter ID Performer Location Encounter Start Date Encounter Closed Date Diagnosis/Indication Diagnosis SNOMED-CT Code Diagnosis ICD10 Code Diagnosis Note [id number] MARCOS BARTHOLOMEW MD [facility] [address] [place] [address] 07/11/2024 11:10:11 07/11/2024 12:01:59 Disorder of the larynx 33744408 J38.7 He may have had a muscle spasm of a strap or other neck muscle. Exam of larynx today including external neck exam and laryngosco py are normal. I gave ressurance and recommend observatio n. Neck pain 92722380 M54.2 resolved Health Concerns Section Related Observation LastModified by Organization Detai ls LastModified Time None Recorded Concern Status LastModified by Organization Details LastModified Time None Recorded Advance Directives Directive None Recorded Payers Encounter Date Sequence Insurance Name Policy Number Policy Lee Covered Member ID Lee Member ID Guarantor Name 07/11/2024 1 [facility] [employer] [facility] (O) [id number] Andrea Gimenez Roney [id number] Andrea Sim Notes Date Note Type Note Provider Name and Address Organization Details Recorded Time 07/11/2024 text/html 1 year ago when he was stretching with his neck extended and he started to cough. He noted bulging of his thyroid cartilage. He applied pressure to his thyroid cartilage and felt a pop. He had a vagal reaction after this happened. It has taken a long time to improve. He still has occasional tightness in his throat. He feels like he may have some laxity in his larynx and sometimes he has to apply pressure to his throat when this happens. He denies pain but sometimes he feels a tension in his throat. He smokes less than he used to but still smokes nicotine and cannabis. He had some CT scans at [facility]. No dysphagia. No current voice change. MARCOS BARTHOLOMEW MD [address] [place] [address], [phone], [place] - [facility] 07/11/2024 12:02:34
[2024-10-11 13:29] VITALS: BP 116/80; PULSE 83; O2SAT 98
--- NOTE | 2024-10-11 13:29 | AM.OFFWIN_ITS ---
Intake Vital Signs 10/11/24 13:29 Weight 291 lb BP 116/80 Blood Pressure Location Lt brachial Position Sitting Pulse 83 Pulse Source Pulse Oximeter Pulse Oximetry (%) 98 Oxygen Delivery Method Room Air Intake Visit Reasons: EP Neck pain Intake Note: Patient here for neck pain that has been present for a couple of days. Patient Tobacco Use Status: Never used Tobacco Allergies No Known Allergies Allergy (Verified 10/11/24 13:35) Do you need a note to return to daycare/school/sports/work: No HPI HPI Comments History of Present Illness Details This is a 29-year-old male who presented to the walk-in clinic complaining of posterior neck pain x1 week. Patient states he has a history of a ? laryngeal dislocation (states he dislocated his viviana's apple) approximately 1 year ago. He states this occurred while doing a back stretch and coughing. He states he self reduced this injury and went to an emergency room for further evaluation and he was referred to an ENT. Patient states recently saw his ENT who recommended gentle range of motion stretches but did not recommend any physical therapy or adult care manager. He states he recently started doing neck stretches and exercises. He states he added a new exercise about 1 week ago. Since then, he has been having some posterior neck pain. He denies any numbness/weakness/paresthesias of his upper extremities. Otherwise denies any trauma or injury. He is otherwise feeling well and at his baseline. [facility] Medical History Obesity (BMI 30-39.9) Atopic dermatitis Surgical History Hx of peritonsillar abscess drainage Family History Paternal Grandfather Prostate cancer Social History Housing: Condominium Alcohol intake: never Patient Tobacco Use Status: Never used Tobacco Substance Use Type: Marijuana service: No Current occupational status: employed Cognitive needs: No Hearing needs: No Vision needs: No Review of Systems Const All systems reviewed & are unremarkable except as noted in HPI and below Reports no additional complaints Eyes Reports no additional complaints ENT Reports no additional complaints Card Reports no additional complaints Resp Reports no additional complaints GI Reports no additional complaints Reports no additional complaints Musc Reports no additional complaints Skin/Breast Reports system reviewed and no additional complaints, except as documented Neuro Reports no additional complaints Psych Reports no additional complaints Endo Reports no additional complaints Brigido/Lymph Reports no additional complaints Aller/Immun Reports no additional complaints Physical Exam Const Other: Vital signs reviewed. Constitutional: Non-toxic appearing. No acute distress. Well-developed and well-nourished. HEENT: Normocephalic and atraumatic. Skin: Warm and dry. No rashes or lesions noted. Neck: Full and painless range of motion. No cervical lymphadenopathy. Cardio: Regular rate. No lower extremity edema. No JVD. Pulmonary: No respiratory distress. No accessory muscle usage. Musculoskeletal: Normal range of motion in joints throughout the body. No deformity or other signs of injury. No cervical spinous process tenderness to palpation or tenderness to palpation or muscle spasms of the cervical paraspinal musculature. Neuro: Alert and oriented x4. Cranial nerves 2-12 grossly intact. No focal deficits appreciated. Psych: Normal mood and affect. Assessment & Plan Assessment & Plan (1) Neck pain: Code(s): M54.2 - Cervicalgia Plan: This is a 29-year-old male who presented to the walk-in clinic complaining of posterior neck pain x1 week. He has a history of a ? laryngeal dislocation about 1 year ago and recently followed up with an ENT who recommended starting gentle range of motion and stretching exercises, which patient started about 1 week ago. Since then, patient has been having mild posterior neck pain without any radicular symptoms. Patient's symptoms appear to be related to a musculoskeletal etiology such as a cervical sprain/strain. A cervical spine x- ray was obtained to rule out cervical dislocation given patient's history and his cervical spine x-ray appears to be within normal limits. Recommended supportive management including rest/activity modification, ice/heat to the area, and PO acetaminophen/ibuprofen for pain management. Patient was advised to follow-up here if his symptoms were to persist/worsen. Additionally, he was advised to follow up with the emergency room if he were to develop any numbness/weakness/paresthesias of his upper extremities or if he were to develop any other concerning symptoms. Patient verbalizes understanding and he is in agreement with the plan. Orders: Orders XR cervical spine 2V Today M54.2 - Cervicalgia Coding Level of Care Code Est Pt Level 3 (60579) Diagnoses Neck pain M54.2
== END 2024-10-11 14:46 | disposition home or self-care (01) ==
PROVIDERS: PCP Internal Medicine; Visit Provider Physician Assistant Medical
DX: M54.2 Cervicalgia (principal)

== ENCOUNTER 2024-10-11 13:11 | Outpatient (REF) | payer OTHER, SELFPAY ==
--- NOTE | ~2024-10-11 | XR_ITS ---
CLINICAL HISTORY: M54.2 - Cervicalgia 2 views cervical spine Comparison: None Findings: Normal vertebral body alignment. No acute fractures or dislocation. No significant degenerative change. Prevertebral soft tissues within normal limits. IMPRESSION: No acute findings. This document has been electronically signed by: Erica Kiser MD on 10/11/2024 14:43:42
== END 2024-10-11 13:12 | disposition home or self-care (01) ==
LOC: HO.HMGCX 13:11
PROVIDERS: PCP Internal Medicine; Visit Provider Physician Assistant Medical
DX: M54.2 Cervicalgia (principal)
CPT/HCPCS: 72040; 99212

== ENCOUNTER → 2024-10-11 13:53 | Outpatient (BNV) | payer OTHER, SELFPAY | PROVIDERS: PCP Internal Medicine; Visit Provider Radiology Diagnostic Radiology | DX: M54.2 Cervicalgia (principal) | CPT/HCPCS: 72040 ==

== ENCOUNTER 2024-12-16 08:42 | Outpatient (AMB) | payer OTHER, SELFPAY ==
[2024-12-16 09:28] VITALS: BP 120/80; PULSE 82; O2SAT 98; BMI 36.5
--- NOTE | 2024-12-16 09:28 | MHC.OFFWIV ---
Intake Vital Signs 12/16/24 09:28 Height 6 ft 1 in Weight 277 lb BMI 36.5 BP 120/80 Blood Pressure Location Lt brachial Position Sitting Pulse 82 Pulse Source Pulse Oximeter Pulse Oximetry (%) 98 Oxygen Delivery Method Room Air Intake Visit Reasons: EP stomach pain Intake Note: Patient here for stomach pain that has been present for about 2 weeks and progressively worsening. Patient Tobacco Use Status: Never used Tobacco Allergies No Known Allergies Allergy (Verified 12/16/24 09:30) Do you need a note to return to daycare/school/sports/work: No HPI HPI Comments History of Present Illness Details 29 y/o Male patient who presents to the walk in clinic with c/o Stomach discomfort for 2 weeks now. Reports Pain is located Epigastric region. Denies Nausea, vomiting, Chills and Fevers. Denies constipation or Diarrhea. [facility] Medical History (Updated 12/16/24 @ 09:59 by Negrita Leyva NP) Gastritis Obesity (BMI 30-39.9) Atopic dermatitis Surgical History Hx of peritonsillar abscess drainage Family History Paternal Grandfather Prostate cancer Social History Housing: Condominium Alcohol intake: never Patient Tobacco Use Status: Never used Tobacco Substance Use Type: Marijuana service: No Current occupational status: employed Cognitive needs: No Hearing needs: No Vision needs: No Review of Systems Const All systems reviewed & are unremarkable except as noted in HPI and below Physical Exam Vital Signs: Last Vital Signs Pulse 82 12/16/24 09:28 BP 120/80 12/16/24 09:28 Pulse Ox 98 12/16/24 09:28 Oxygen Delivery Method Room Air 12/16/24 09:28 BMI result Body Mass Index 36.5 Const General: no acute distress Nutritional Appearance: obese Orientation/consciousness: patient oriented x3 Resp Effort & Inspection: normal respiratory effort Auscultation: clear to auscultation bilaterally Cardio Heart sounds: S1 normal heart sound present and S2 normal heart sound present GI Inspection: Yes Abdominal panniculus present and Yes obesity Palpation (GI): Soft to palpation, not firm, Tenderness to palpation present (GI) in the epigastrum, no guarding, not rigid and No hepatosplenomegaly present Auscultation: normal bowel sounds Neuro General: patient oriented x3, gait normal and moves all extremities Psych Speech and movement: Normal speech and movement present Assessment & Plan Assessment & Plan (1) Gastritis: Code(s): K29.70 - Gastritis, unspecified, without bleeding Qualifiers: Gastritis type: other gastritis Chronicity: acute Gastritis bleeding: without bleeding Qualified Code(s): K29.00 - Acute gastritis without bleeding Plan: Lifestyle changes; Avoid Spicy, Oily or [place] foods, Weight Loss. Ordered Omeprazole BID Medications: New omeprazole 20 mg PO BID 60 caps 0RF K29.00 - Acute gastritis without bleeding Coding Level of Care Code Est Pt Level 4 (53074) Diagnoses Other acute gastritis without hemorrhage K29.00 Gastritis type: other gastritis Chronicity: acute Gastritis bleeding: without bleeding Time Spent (min) 20
== END 2024-12-16 10:05 | disposition home or self-care (01) ==
PROVIDERS: PCP Internal Medicine; Visit Provider Nurse Practitioner Family
DX: K29.00 Acute gastritis without bleeding (principal)

== ENCOUNTER → 2024-12-16 08:42 | Outpatient (BNVA) | payer OTHER, SELFPAY | PROVIDERS: PCP Internal Medicine | DX: K29.00 Acute gastritis without bleeding (principal) | CPT/HCPCS: 99212 ==

== ENCOUNTER 2025-01-01 09:08 | Outpatient (AMB) | payer OTHER, SELFPAY ==
[2025-01-01 09:11] VITALS: BP 124/76; PULSE 88; O2SAT 96; BMI 36.5
--- NOTE | 2025-01-01 09:11 | MHC.PC.OV ---
Vital Signs 01/01/25 09:11 Height 6 ft 1 in Weight 276 lb 6 oz BMI 36.5 BP 124/76 Blood Pressure Location Lt brachial Position Sitting Pulse 88 Pulse Source Pulse Oximeter Pulse Oximetry (%) 96 Oxygen Delivery Method Room Air Intake Visit Reasons: Annual Exam [employer] Required: No Accompanied by: Self / Same As Patient Allergies No Known Allergies Allergy (Verified 01/01/25 09:42) Medication List - Last Reconciled 01/01/25 by Fausto Man MD cholecalciferol (vitamin D3) 50 mcg PO DAILY 90 days omeprazole 20 mg PO BID tacrolimus 0.1% 1 appl topical BID Tobacco use date assessed: 01/01/25 Dental Screening Dental Screen Date: 01/01/25 Did you have a dental visit in the last 12 months?: No Did you have a dental problem in the last 6 months where you did not have access to dental care?: No Was dental information given to patient?: No HPI Annual Exam HPI Details Patient comes in today for his annual physical examination States that he feels okay Reports that he was cleared completely by ENT a few months ago and he currently no longer has any issues with his swallowing He denies any headaches or dizziness; denies any sore throat or any recent cough/cold symptoms Denies any chest pains, no SOB No nausea/vomiting, no abdominal pain but he was experiencing some lower chest pains and progressive epigastric pains a couple of weeks ago and went to the walk-in clinic in [place] He was prescribed Omeprazole 20 mg BID, which he is still currently on - states that his symptoms have improved significantly with his Rx No change in bowel habits noted He denies any acute urinary symptoms [facility] Medical History Cervical disc disease Vitamin D deficiency Gastritis Obesity (BMI 30-39.9) Atopic dermatitis Surgical History Hx of peritonsillar abscess drainage Family History Paternal Grandfather Prostate cancer Social History Housing: Condominium Alcohol intake: never Patient Tobacco Use Status: Never used Tobacco e-Cigarette/Vaping Use: Never Used Substance Use Type: Marijuana service: No Current occupational status: employed Cognitive needs: No Hearing needs: No Vision needs: No Questionnaire PHQ-9 Over the last 2 weeks, how often have you been bothered by any of the following problems? 1. Little interest or pleasure in doing things: not at all 2. Feeling down, depressed, or hopeless: not at all 3. Trouble falling or staying asleep, or sleeping too much: not at all 4. Feeling tired or having little energy: not at all 5. Poor appetite or overeating: not at all 6. Feeling bad about yourself - or that you are a failure or have let yourself or your family down: not at all 7. Trouble concentrating on things, such as reading the newspaper or watching television: not at all 8. Moving or speaking so slowly that other people could have noticed. Or the opposite - being so fidgety or restless that you have been moving around a lot more than usual: not at all 9. Thoughts that you would be better off or of hurting yourself in some way: not at all Total score: 0 Depression Screening Interpretation: Negative Depression Screening Done: Yes 23693 - PHQ-9 Billing: Yes Source: Developed by Drs. Vance Bates, Daniella Tesfaye, Waldemar Estrada and colleagues, with an educational jeremiah from [employer]. Thrive Questionnaire Date Thrive assessed: 01/01/25 I am a: Patient What is your living situation today?: I have a steady place to live Within the past 12 months, did the food you bought not last and you didn't have the money to get more?: Never true Within the past 12 months, did you worry whether your food would run out before you got money to buy more?: Never true Do you have trouble paying for medicines?: No Do you have trouble getting transportation to medical appointments?: No Do you have trouble paying your heating and electricity bill?: No Do you have trouble taking care of your child, family member or friend?: No Do you have trouble with day-to-day activities such as bathing, preparing meals, shopping, managing finances, etc.?: No Are you currently unemployed and looking for a job?: No Are you interested in more education?: Yes Please select the resources that you would like help with: None Currently or been in a relationship where the following occur: No concerns reported THRIVE Score: 0 AUDIT C Alcohol Use Questionnaire (AUDIT-C) 1. How often do you have a drink containing alcohol?: Monthly or less 2. How many drinks containing alcohol do you have on a typical day when you are drinking?: 1 or 2 3. How often do you have six or more drinks on one occasion?: Never Total Score: 1 Score Reviewed/Action Taken: Yes CASIE-7 AMB Questionnaire CASIE-7 Date CASIE - 7 assessed: 01/01/25 Feeling nervous, anxious, or on edge: 0 = Not at all Not being able to stop or control worryin = Not at all Worrying too much about different things: 0 = Not at all Trouble relaxin = Not at all Being so restless that it is hard to sit still: 0 = Not at all Becoming easily annoyed or irritable: 0 = Not at all Feeling afraid as if something awful might happen: 0 = Not at all Total CASIE-7 score (0-4 normal; 5-9 mild; 10-14 moderate; 15-21 severe): 0 Source: Developed by Drs. Vance Bates, Daniella Tesfaye, Waldemar Estrada and colleagues, with an educational jeremiah from [employer]. Review of Systems Const Denies chills, Denies fatigue, Denies fever(s), Denies headache(s), Denies malaise and Denies weakness Eyes Denies blurry vision, Denies change in vision, Denies irritation and Denies itchy eyes ENT Denies dysphagia, Denies dizziness, Denies otalgia, Denies headache(s), Denies nasal congestion, Denies neck pain, Denies odynophagia and Denies sore throat Card Denies chest pain, Denies rapid heart rate, Denies irregular heart rhythm, Denies palpitations and Denies dyspnea Resp Denies chest congestion, Denies cough, Denies dyspnea and Denies wheezing GI Denies abdominal pain, Denies bloating, Denies constipation, Denies dysphagia, Denies heartburn, Denies diarrhea, Denies nausea, Denies odynophagia and Denies vomiting Denies hematuria, Denies difficulty urinating, Denies dysuria, Denies urinary frequency and Denies urinary urgency Musc Denies back pain, Denies arthralgias, Denies joint swelling, Denies muscle weakness and Denies neck pain Skin/Breast Denies change in pigmentation, Denies lesions, Denies rash and Denies unusual bruising Neuro Denies dizziness, Denies headache(s), Denies paresthesias and Denies weakness Endo Denies fatigue and Denies palpitations Aller/Immun Denies itchy eyes and Denies wheezing Physical exam (Primary Care) Vital Signs: Last Vital Signs Pulse 88 01/01/25 09:11 BP 124/76 01/01/25 09:11 Pulse Ox 96 01/01/25 09:11 Oxygen Delivery Method Room Air 01/01/25 09:11 BMI result Body Mass Index 36.5 Tobacco/Smoking Status: Tobacco use Status Tobacco use date assessed 01/01/25 01/01/25 09:14 Patient Tobacco Use Status Never used Tobacco 01/01/25 09:14 e-Cigarette/Vaping Use Never Used 01/01/25 09:20 PHQ-9: PHQ-9 Score PHQ-9: Total score 0 01/01/25 09:14 Depression Screening Interpretation: Negative Thrive Assessment: Date of Thrive Assessment Date Thrive assessed 01/01/25 01/01/25 09:14 Currently or been in a relationship where the following occur: No concerns reported Const General: no acute distress, alert and awake Orientation/consciousness: patient oriented x3 HENMT Head: Yes normocephalic and Yes atraumatic Ears: external ears normal, TM's normal bilaterally and EAC's normal General nose exam: No nasal discharge present Face and sinus: Yes normal facial exam and Yes sinuses nontender Teeth and gingiva: dentition normal Throat: Yes posterior oropharynx normal and Yes tonsils normal (no TP congestion) Eyes Eyelids: Yes eyelids normal Conjunctivae: conjunctivae normal Pupils: Equal, round and reactive pupils present EOM: EOMs intact bilaterally Neck Neck: Yes no lymphadenopathy and Yes supple Thyroid: Thyroid normal Resp Auscultation: clear to auscultation bilaterally, no rales and no wheezes Cardio Rate: regular rate Rhythm: regular rhythm Heart sounds: no murmurs GI Palpation (GI): Soft to palpation, nontender and No hepatosplenomegaly present Auscultation: normal bowel sounds General: Yes no CVA tenderness Back/Spine/Pelvis Back: no CVA tenderness Thoracic/Lumbar Spine: thoracic and lumbar spine normal to inspection Skin Lesions: no lesions Rashes: no rashes Neuro General: patient oriented x3, moves all extremities, no focal motor deficits and CN's II-XI intact bilaterally Cranial nerves: Yes Equal, round and reactive pupils present Cognition (Neuro): normal cognition Gait exam (Neuro): Normal gait present Extrem General: Yes no clubbing, cyanosis or edema Results Reviewed Results Reviewed: Laboratory Tests 02/02/24 02/02/24 12:59 13:03 WBC 5.5 Hgb 14.6 Hct 42.9 Plt Count 239 Sodium 140 Potassium 3.9 Creatinine 0.99 Estimated GFR > 60 Fasting Glucose 84 Calcium 9.5 AST 22 ALT 35 Triglycerides 111 Cholesterol 144 LDL Cholesterol, Calc 90 HDL Cholesterol 32 L 25-OH Vitamin D Total 14.9 L TSH 0.95 Ur Specific [place] 1.015 Urine Protein Negative Urine Glucose (UA) Negative Urine Blood Negative Urine Nitrite Negative Ur Leukocyte Esterase Negative Coding Level of Care Code Est Pt Prev Care 18-39y(61068) Diagnoses Annual physical exam Z00.00 Vitamin D deficiency E55.9 Cervical disc disease M50.90 Other acute gastritis without hemorrhage K29.00 Gastritis type: other gastritis Chronicity: acute Gastritis bleeding: without bleeding Atopic dermatitis, unspecified type L20.9 Atopic dermatitis type: unspecified Obesity (BMI 30-39.9) E66.9 Additional Codes PHQ-9 - 44337 - PHQ-9 Billing: Yes ([id number]) Assessment & Plan Assessment & Plan (1) Annual physical exam: Code(s): Z00.00 - Encounter for general adult medical examination without abnormal findings Category: Medical Plan: Check labs He is reminded that his labs done last year were all normal except for his low Vitamin D level (2) Vitamin D deficiency: Code(s): E55.9 - Vitamin D deficiency, unspecified Category: Medical Plan: Continue Vitamin D3 2000 units QD Will recheck his Vitamin D level for follow up (3) Cervical disc disease: Code(s): M50.90 - Cervical disc disorder, unspecified, unspecified cervical region Category: Medical Plan: Soft tissue neck CT done in July 2023 revealed findings of moderate degenerative disc disease at C3-C4 and mild degenerative disc disease at C4-C5 but her cervical spine x-rays done in September 2024 revealed NO significant degenerative changes Patient inquired as to whether going to a chiropractor when needed would be helpful - have advised him that a massage therapist rather than a chiropractor might be more advisable as I would prefer he avoid having his spine manipulated as much as possible (4) Gastritis: Code(s): K29.70 - Gastritis, unspecified, without bleeding Category: Medical Qualifiers: Gastritis type: other gastritis Chronicity: acute Gastritis bleeding: without bleeding Qualified Code(s): K29.00 - Acute gastritis without bleeding Plan: Dietary restrictions reinforced Continue Omeprazole 20 mg but I have instructed patient to start lowering it to QD dosing He is instructed to stay on Omeprazole QD for another month or two and then try to come off the Rx Advised that if he stop taking his Omeprazole and his GI symptoms recur, then he is to go back on his Rx and to check with us regarding this - he may need further evaluation with imaging studies or EGD then (5) Atopic dermatitis: Comment: Will give patient prednisone taper. Patient has been instructed to continue using triamcinolone for topical spot treatment. Patient has been instructed to follow-up in the walk-in clinic if does not notice improvement over the next 3 days. Code(s): L20.9 - Atopic dermatitis, unspecified Category: Medical Qualifiers: Atopic dermatitis type: unspecified Qualified Code(s): L20.9 - Atopic dermatitis, unspecified Plan: Continue Triamcinolone acetonide 0.5% cream apply to rash BID-TID PRN (6) Obesity (BMI 30-39.9): Code(s): E66.9 - Obesity, unspecified Category: Medical Plan: Reinforced diet/exercise as tolerated/lose weight Plan To return in 1 year for her next annual physical examination Orders: Orders UA CC w/rflx Micro + Cult Today R30.0 - Dysuria, Z00.00 - Encounter for general adult medical examination without abnormal findings Vitamin D 25-OH Total Today E55.9 - Vitamin D deficiency, unspecified, Z00.00 - Encounter for general adult medical examination without abnormal findings Comprehensive [place]. Panel Fast Today E78.00 - Pure hypercholesterolemia, unspecified, Z00.00 - Encounter for general adult medical examination without abnormal findings Lipid Panel Today E78.00 - Pure hypercholesterolemia, unspecified, Z00.00 - Encounter for general adult medical examination without abnormal findings Complete Blood Count Auto Diff Today D64.9 - Anemia, unspecified, Z00.00 - Encounter for general adult medical examination without abnormal findings TSH reflex Free T4 Today E78.00 - Pure hypercholesterolemia, unspecified, Z00.00 - Encounter for general adult medical examination without abnormal findings
--- OUTSIDE RECORDS SUMMARY | 2025-01-01 10:00 | XMS_ITS | Data Portability ---
Author Organization [place] - [facility], Allergy Address [address] [address] Care Team Providers Care Grain Packer Name Role Phone DEANNE NUÑEZ Referring Provider [...] ast No observ ation record ed. [email or web address] [facility] 704 [facility] 100, [place], [address], 07/12/2024 08:57:14 07/12/20 24 07/12/2023 CT, neck, soft tissu e, w/o contr ast No observ ation record ed. reppsteiner Not Available 01/2024 09:04:33 Result Notes None recorded. 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 11:49:29 Neck pain 67074495 Active 024 MARCOS BARTHOLOMEW MD [address] [place] [address], [place], [address] , [facility] 11:49:35 Problem Notes None recorded. Procedures Surgical History Date Name Laterality Status Provider Name and Address Organization Details Recorded Time 07/11/2024 FFL_RE completed MARCOS BARTHOLOMEW MD [address] [place] [address], [place], [address], [facility] 07/11/2024 11:49:39 Imaging Results Imaging Date Name Status LastModified by Organiz ation Details LastModified Time 07/12/2023 CT, neck, soft tissue, w/o contrast completed [email or web address] [facility] [address] [address], [place], [address], 07/12/2024 08:57:14 07/12/2023 CT, neck, soft tissue, [...] Updated DateTime 07/11/2024 185.42 cm 39.6 kg/m2 743060.[address] - [facility] 07/11/2024 11:28:26 Social History None recorded. Functional Status None recorded. Mental Status None recorded. Family History Nothing Reported. Medical History No medical history recorded. Past Encounters Encounter ID Performer Location Encounter Start Date Encounter Closed Date Diagnosis/Indication Diagnosis SNOMED-CT Code Diagnosis ICD10 Code Diagnosis Note [id number] MARCOS BARTHOLOMEW MD [facility] 100 [place] [address] 07/11/2024 11:10:11 07/11/2024 12:01:59 Disorder of the larynx 74897866 J38.7 He may have had a muscle spasm of a strap or other neck muscle. Exam of larynx today including external neck exam and laryngosco py are normal. I gave ressurance and recommend observatio n. Neck pain 80234262 M54.2 resolved Health Concerns Section Related Observation LastModified by Organization Detai ls LastModified Time None Recorded Concern Status LastModified by Organization Details LastModified Time None Recorded Advance Directives Directive None Recorded Payers Encounter Date Sequence Insurance Name Policy Number Policy Lee Covered Member ID Lee Member ID Guarantor Name 07/11/2024 1 [facility] [employer] [facility] ([id number]) [id number] Andrea Gimenez Roney [id number] Andrea Sim Notes Date Note Type [...] cannabis. He had some CT scans at [facility]. No dysphagia. No current voice change. MARCOS BARTHOLOMEW MD [address] [place] [address], [address], [place] - [facility] 07/11/2024 12:02:34
== END 2025-01-01 09:55 | disposition home or self-care (01) ==
LOC: HO.HMCH 09:09
PROVIDERS: PCP Internal Medicine; Visit Provider Internal Medicine
DX: Z00.00 Encounter for general adult medical examination without abnormal findings (principal); E55.9 Vitamin D deficiency, unspecified; E66.9 Obesity, unspecified; Z68.36 Body mass index [BMI] 36.0-36.9, adult; M50.90 Cervical disc disorder, unspecified, unspecified cervical region; K29.00 Acute gastritis without bleeding; L20.9 Atopic dermatitis, unspecified

== ENCOUNTER → 2025-01-01 09:08 | Outpatient (BNVA) | payer OTHER, SELFPAY | PROVIDERS: PCP Internal Medicine; Visit Provider Internal Medicine | DX: Z00.00 Encounter for general adult medical examination without abnormal findings (principal); E55.9 Vitamin D deficiency, unspecified; M50.90 Cervical disc disorder, unspecified, unspecified cervical region; K29.00 Acute gastritis without bleeding; L20.9 Atopic dermatitis, unspecified; E66.9 Obesity, unspecified; Z68.36 Body mass index [BMI] 36.0-36.9, adult | CPT/HCPCS: 96127; 99395 ==

== ENCOUNTER 2025-01-09 08:30 | Outpatient (REF) | payer OTHER, SELFPAY ==
--- OUTSIDE RECORDS SUMMARY | 2025-01-09 08:46 | XMS_ITS | Data Portability ---
Author Organization [place] - [facility], Allergy Address [address] [address] Care Team Providers Care Sharepoint Developer Name Role Phone DEANNE NUÑEZ Referring Provider [phone] Assessment No assessment recorded. Plan of Treatment [...] ast No observ ation record ed. reppsteiner [facility] 704 [facility] 100, [place], [address], 07/12/2024 08:57:14 07/12/20 24 07/12/2023 CT, neck, soft tissu e, w/o contr ast No observ ation record ed. reppsteiner Not Available 01/2024 09:04:33 Result Notes None recorded. Problems Name Problem SNOMED Code Status Onset Date Resolution Date Notes Provider Name and Address Organization Details Recorded Time Disorder of the larynx 63189243 Active 024 MARCOS BARTHOLOMEW MD 100 [facility] 100, [place], [address] , [place] - [facility] 4 11:49:29 Neck pain 62488231 Active 024 MARCOS BARTHOLOMEW MD [address] [place] [address], [place], [address] , [facility] 11:49:35 Problem Notes None recorded. Procedures Surgical History Date Name Laterality Status Provider Name and Address Organization Details Recorded Time 07/11/2024 FFL_RE completed MARCOS BARTHOLOMEW MD [address] [place] [address], [place], [address], [facility] 07/11/2024 11:49:39 Imaging Results Imaging Date Name Status LastModified by Organiz ation Details LastModified Time 07/12/2023 CT, neck, soft tissue, w/o contrast completed [email or web address] [facility] [address] [address], [place], [address], 07/12/2024 08:57:14 07/12/2023 CT, neck, soft tissue, [...] Updated DateTime 07/11/2024 185.42 cm 39.6 kg/m2 446735.71 g Erin Torres [place] - [facility] 07/11/2024 11:28:26 Social History None recorded. Functional Status None recorded. Mental Status None recorded. Family History Nothing Reported. Medical History No medical history recorded. Past Encounters Encounter ID Performer Location Encounter Start Date Encounter Closed Date Diagnosis/Indication Diagnosis SNOMED-CT Code Diagnosis ICD10 Code Diagnosis Note [id number] MARCOS BARTHOLOMEW MD [facility] 100 [place] [address] 07/11/2024 11:10:11 07/11/2024 12:01:59 Disorder of the larynx 79445973 J38.7 He may have had a muscle spasm of a strap or other neck muscle. Exam of larynx today including external neck exam and laryngosco py are normal. I gave ressurance and recommend observatio n. Neck pain 30447068 M54.2 resolved Health Concerns Section Related Observation LastModified by Organization Detai ls LastModified Time None Recorded Concern Status LastModified by Organization Details LastModified Time None Recorded Advance Directives Directive None Recorded Payers Encounter Date Sequence Insurance Name Policy Number Policy Lee Covered Member ID Lee Member ID Guarantor Name 07/11/2024 1 [facility] [employer] [facility] (O) [id number] Andrea Gimenez Roney [id number] Andrea Sim Notes Date Note Type [...] cannabis. He had some CT scans at [facility]. No dysphagia. No current voice change. MARCOS BARTHOLOMEW MD [address] [place] [address], [address], [place] - [facility] 07/11/2024 12:02:34
[2025-01-09 08:51] LABS: MANUAL DIFF FLAG NO
[2025-01-09 09:32] LABS: Basophils Percent Auto 0.7 % (0-2); Eosinophils Absolute Auto 0.1 X10*3/uL (0.0-0.4); Eosinophils Percent Auto 2.4 % (0-4); Hemoglobin 14.4 g/dl (14.0-18.0); Imm Gran Abs Auto 0.01 X10*3/uL (0.00-0.03); Imm Gran Pct Auto 0.2 % (0.0-0.4); Lymphocytes Absolute Auto 1.6 X10*3/uL (1.2-4.9); Lymphocytes Percent Auto 28.3 % (20-40); Mean Corpuscular HGB Conc 32.7 g/dl (31.0-36.0); Mean Corpuscular Hemoglobin 28.9 pg (27.0-33.0); Mean Corpuscular Volume 88.4 fL (80.0-98.0); Mean Platelet Volume 12.2 fL (9.4-12.4); Monocytes Absolute Auto 0.5 X10*3/uL (0.1-1.2); Monocytes Percent Auto 9.1 % (2-11); Neutrophils Absolute Auto 3.4 x10*3/uL (2.0-8.3); Neutrophils Percent Auto 59.3 % (45-73); Platelet Count 215 X10*3/uL (160-400); Red Blood Count 4.98 X10*6/uL (4.60-5.80); Red Cell Distribution Width 13.3 % (11.0-16.0); White Blood Count 5.7 X10*3/uL (4.8-10.8)
[2025-01-09 09:32] LABS: Appearance Urine Clear; Color Urine Yellow; Glucose Urine UA Negative (Negative); Leukocyte Esterase Urine Negative (Negative); Nitrite Urine Negative (Negative); PH 5.5 (5.0-9.0); Specific Gravity - Urine 1.015 (1.005-1.025); Urine Blood Negative (Negative); Urine Ketones Negative (Negative); Urine Protein Negative (Neg-Trace)
[2025-01-09 10:20] LABS: Alanine Aminotransferase 70 U/L (0-40); Albumin Level 4.4 g/dL (3.5-5.0); Alkaline Phosphatase 47 U/L (39-117); Anion Gap 10 (12-20); Aspartate Amino Transferase 30 U/L (5-37); Bilirubin Total 0.6 mg/dL (0.0-1.0); Blood Urea Nitrogen 15 mg/dL (9-16); Calcium 9.4 mg/dL (8.4-10.2); Carbon Dioxide 29 mmol/L (22-29); Chloride 106 mmol/L (96-108); Cholesterol 177 mg/dL (<200); Estimated Glomerular Filt Rate > 60; Glucose Fasting 97 mg/dL (60-99); HDL Cholesterol 36 mg/dL (>40); LDL Cholesterol Calculated 120 mg/dL (<100); Potassium 4.6 mmol/L (3.3-5.1); Sodium 140 mmol/L (135-145); Total Protein 7.2 g/dL (6.5-8.0); Triglycerides 105 mg/dL (<150)
[2025-01-09 10:45] LABS: TSH reflex Free T4 1.13 uIU/mL (0.32-4.0); Vitamin D 25-OH Total 22.3 ng/mL (>30)
== END 2025-01-09 08:31 | disposition home or self-care (01) ==
LOC: HO.LAB 08:30
PROVIDERS: PCP Internal Medicine; Visit Provider Internal Medicine
DX: Z00.00 Encounter for general adult medical examination without abnormal findings (principal); R30.0 Dysuria; D64.9 Anemia, unspecified; E78.00 Pure hypercholesterolemia, unspecified; E55.9 Vitamin D deficiency, unspecified
CPT/HCPCS: 36415; 80053; 80061; 81003; 82306; 84443; 85025

== ENCOUNTER 2025-04-14 09:47 | Outpatient (AMB) | payer OTHER, SELFPAY ==
[2025-04-14 09:49] VITALS: BP 120/84; PULSE 84; O2SAT 98; BMI 34.4
--- NOTE | 2025-04-14 09:49 | A.OFFPC_ITS ---
Vital Signs 04/14/25 09:49 Height 6 ft 1 in Weight 260 lb 8 oz BMI 34.4 BP 120/84 Blood Pressure Location Lt brachial Position Sitting Pulse 84 Pulse Source Pulse Oximeter Pulse Oximetry (%) 98 Oxygen Delivery Method Room Air Intake Visit Reasons: ABD pain Manufacturing Maintenance Manager Required: No Accompanied by: Self / Same As Patient Allergies No Known Allergies Allergy (Verified 04/14/25 10:59) Medication List - Last Reconciled 04/14/25 by Fausto Man MD cholecalciferol (vitamin D3) 50 mcg PO DAILY 90 days omeprazole 20 mg PO BID 30 days tacrolimus 0.1% 1 appl topical BID Tobacco use date assessed: 04/14/25 Dental Screening Dental Screen Date: 04/14/25 Did you have a dental visit in the last 12 months?: No Did you have a dental problem in the last 6 months where you did not have access to dental care?: No Was dental information given to patient?: No HPI ABD pain HPI Details Patient comes in today for his follow up visit States that he feels okay He denies any headaches or dizziness Denies any chest pains, no SOB No nausea/vomiting but notes that he still has occasional epigastric pain and/or discomfort even though he has been taking his Omeprazole BID for a while now States that his abdominal symptoms seem to be triggered when he eats spicy foods, which he is aware that he should be avoiding Also notes (+) some chest discomfort/burning at times that usually occur in association with his epigastric symptoms No change in bowel habits noted He would also like to know how he did on his labs done back in January 2025 [facility] Medical History Cervical disc disease Vitamin D deficiency Gastritis Obesity (BMI 30-39.9) Atopic dermatitis Surgical History Hx of peritonsillar abscess drainage Family History Paternal Grandfather Prostate cancer Social History Housing: Condominium Alcohol intake: never Patient Tobacco Use Status: Never used Tobacco e-Cigarette/Vaping Use: Never Used Substance Use Type: Marijuana service: No Current occupational status: employed Cognitive needs: No Hearing needs: No Vision needs: No Questionnaire PHQ-9 Over the last 2 weeks, how often have you been bothered by any of the following problems? 1. Little interest or pleasure in doing things: not at all 2. Feeling down, depressed, or hopeless: not at all 3. Trouble falling or staying asleep, or sleeping too much: not at all 4. Feeling tired or having little energy: not at all 5. Poor appetite or overeating: not at all 6. Feeling bad about yourself - or that you are a failure or have let yourself or your family down: not at all 7. Trouble concentrating on things, such as reading the newspaper or watching television: not at all 8. Moving or speaking so slowly that other people could have noticed. Or the opposite - being so fidgety or restless that you have been moving around a lot more than usual: not at all 9. Thoughts that you would be better off or of hurting yourself in some way: not at all Total score: 0 Depression Screening Interpretation: Negative Depression Screening Done: Yes 24986 - PHQ-9 Billing: Yes Source: Developed by Drs. Vance Bates, Daniella Tesfaye, Waldemar Estrada and colleagues, with an educational jeremiah from [employer]. Thrive Questionnaire Date Thrive assessed: 04/14/25 I am a: Patient What is your living situation today?: I have a steady place to live Within the past 12 months, did the food you bought not last and you didn't have the money to get more?: Never true Within the past 12 months, did you worry whether your food would run out before you got money to buy more?: Never true Do you have trouble paying for medicines?: No Do you have trouble getting transportation to medical appointments?: No Do you have trouble paying your heating and electricity bill?: No Do you have trouble taking care of your child, family member or friend?: No Do you have trouble with day-to-day activities such as bathing, preparing meals, shopping, managing finances, etc.?: No Are you currently unemployed and looking for a job?: No Are you interested in more education?: Yes Please select the resources that you would like help with: None Currently or been in a relationship where the following occur: No concerns repor rita THRIVE Score: 0 AUDIT C Alcohol Use Questionnaire (AUDIT-C) 1. How often do you have a drink containing alcohol?: Monthly or less 2. How many drinks containing alcohol do you have on a typical day when you are drinking?: 1 or 2 3. How often do you have six or more drinks on one occasion?: Never Total Score: 1 Score Reviewed/Action Taken: Yes CASIE-7 AMB Questionnaire CASIE-7 Date CASIE - 7 assessed: 04/14/25 Feeling nervous, anxious, or on edge: 0 = Not at all Not being able to stop or control worryin = Not at all Worrying too much about different things: 0 = Not at all Trouble relaxin = Not at all Being so restless that it is hard to sit still: 0 = Not at all Becoming easily annoyed or irritable: 0 = Not at all Feeling afraid as if something awful might happen: 0 = Not at all Total CASIE-7 score (0-4 normal; 5-9 mild; 10-14 moderate; 15-21 severe): 0 Source: Developed by Drs. Vance Bates, Daniella Tesfaye, Waldemar Estrada and colleagues, with an educational jeremiah from [employer]. Review of Systems Const Denies chills, Denies fatigue, Denies fever(s) and Denies headache(s) ENT Denies dysphagia, Denies dizziness, Denies otalgia, Denies headache(s), Denies neck pain, Denies odynophagia and Denies sore throat Card Details: (+) occasional chest pressure/burning sensation in association with his abdominal symptoms Denies chest pain, Denies rapid heart rate, Denies irregular heart rhythm, Denies palpitations and Denies dyspnea Resp Denies chest congestion, Denies cough and Denies dyspnea GI Reports abdominal pain (on and off - see HPI), Denies constipation, Denies dysphagia, Denies heartburn, Denies diarrhea, Denies nausea, Denies odynophagia and Denies vomiting Denies difficulty urinating, Denies dysuria and Denies urinary frequency Musc Denies back pain, Denies arthralgias and Denies neck pain Skin/Breast Denies rash Neuro Denies dizziness, Denies headache(s) and Denies paresthesias Endo Denies fatigue and Denies palpitations Physical exam (Primary Care) Vital Signs: Last Vital Signs Pulse 84 04/14/25 09:49 BP 120/84 04/14/25 09:49 Pulse Ox 98 04/14/25 09:49 Oxygen Delivery Method Room Air 04/14/25 09:49 BMI result Body Mass Index 34.4 Tobacco/Smoking Status: Tobacco use Status Tobacco use date assessed 04/14/25 04/14/25 09:54 Patient Tobacco Use Status Never used Tobacco 04/14/25 09:54 e-Cigarette/Vaping Use Never Used 04/14/25 09:54 PHQ-9: PHQ-9 Score PHQ-9: Total score 0 04/14/25 09:54 Depression Screening Interpretation: Negative Thrive Assessment: Date of Thrive Assessment Date Thrive assessed 04/14/25 04/14/25 09:54 Currently or been in a relationship where the following occur: No concerns reported Const General: no acute distress and alert HENMT Ears: TM's normal bilaterally and EAC's normal Throat: Yes posterior oropharynx normal and Yes tonsils normal (no TP congestion) Neck Neck: Yes supple and No lymphadenopathy Thyroid: Thyroid normal Resp Auscultation: clear to auscultation bilaterally, no rales and no wheezes Cardio Rate: regular rate Rhythm: regular rhythm Heart sounds: no murmurs GI Palpation (GI): Soft to palpation, Tenderness to palpation present (GI) (mild) in the epigastrum, no guarding, not rigid and No Rebound tenderness present Auscultation: normal bowel sounds General: Yes no CVA tenderness Back/Spine/Pelvis Back: no CVA tenderness Thoracic/Lumbar Spine: No lumbar spinal tenderness Skin Rashes: no rashes Extrem General: Yes no clubbing, cyanosis or edema Results Reviewed Results Reviewed: Laboratory Tests 01/09/25 01/09/25 08:48 08:50 WBC 5.7 Hgb 14.4 Hct 44.0 Plt Count 215 Sodium 140 Potassium 4.6 Creatinine 0.92 Estimated GFR > 60 Fasting Glucose 97 Calcium 9.4 AST 30 ALT 70 H Triglycerides 105 Cholesterol 177 LDL Cholesterol, Calc 120 H HDL Cholesterol 36 L 25-OH Vitamin D Total 22.3 L TSH 1.13 Ur Specific Frazer 1.015 Urine Protein Negative Urine Glucose (UA) Negative Urine Blood Negative Urine Nitrite Negative Ur Leukocyte Esterase Negative Coding Level of Care Code Est Pt Level 4 (99046) Diagnoses Other acute gastritis without hemorrhage K29.00 Gastritis type: other gastritis Chronicity: acute Gastritis bleeding: without bleeding Vitamin D deficiency E55.9 Cervical disc disease M50.90 Atopic dermatitis, unspecified type L20.9 Atopic dermatitis type: unspecified Obesity (BMI 30-39.9) E66.9 Additional Codes PHQ-9 - 57744 - PHQ-9 Billing: Yes ([id number]) Assessment & Plan Assessment & Plan (1) Gastritis: Code(s): K29.70 - Gastritis, unspecified, without bleeding Category: Medical Qualifiers: Gastritis type: other gastritis Chronicity: acute Gastritis bleeding: without bleeding Qualified Code(s): K29.00 - Acute gastritis without bleeding Plan: Dietary restrictions reinforced Continue Omeprazole 20 mg - instructed patient to go back up to BID dosing for now Will now send him for upper GI series for further evaluation If his upper GI series is unrevealing, may then need to refer him to GI for consideration for EGD (2) Vitamin D deficiency: Code(s): E55.9 - Vitamin D deficiency, unspecified Category: Medical Plan: Continue Vitamin D3 2000 units QD He is advised that his Vitamin D level was improving on his recent labs done back in January 2025 (3) Cervical disc disease: Code(s): M50.90 - Cervical disc disorder, unspecified, unspecified cervical region Category: Medical Plan: Soft tissue neck CT done in July 2023 revealed findings of moderate degenerative disc disease at C3-C4 and mild degenerative disc disease at C4-C5 but her cervical spine x-rays done in September 2024 revealed NO significant degenerative changes Patient inquired as to whether going to a chiropractor when needed would be helpful - have advised him that a massage therapist rather than a chiropractor might be more advisable as I would prefer he avoid having his spine manipulated as much as possible (4) Atopic dermatitis: Comment: Will give patient prednisone taper. Patient has been instructed to continue using triamcinolone for topical spot treatment. Patient has been instructed to follow-up in the walk-in clinic if does not notice improvement over the next 3 days. Code(s): L20.9 - Atopic dermatitis, unspecified Category: Medical Qualifiers: Atopic dermatitis type: unspecified Qualified Code(s): L20.9 - Atopic dermatitis, unspecified Plan: Continue Triamcinolone acetonide 0.5% cream apply to rash BID-TID PRN (5) Obesity (BMI 30-39.9): Code(s): E66.9 - Obesity, unspecified Category: Medical Plan: Reinforced diet/exercise as tolerated/lose weight Plan Follow up in 4 months Orders: Orders [place] upper GI series Today K29.00 - Acute gastritis without bleeding, R10.13 - Epigastric pain Medications: Changed From omeprazole 20 mg PO BID K29.00 - Acute gastritis without bleeding, R10.13 - Epigastric pain To omeprazole 20 mg PO BID 60 caps 3RF 30 days K29.00 - Acute gastritis without bleeding, R10.13 - Epigastric pain
== END 2025-04-14 10:29 | disposition home or self-care (01) ==
LOC: HO.HMCH 09:48
PROVIDERS: PCP Internal Medicine; Visit Provider Internal Medicine
DX: K29.00 Acute gastritis without bleeding (principal); E55.9 Vitamin D deficiency, unspecified; M50.90 Cervical disc disorder, unspecified, unspecified cervical region; L20.9 Atopic dermatitis, unspecified; E66.9 Obesity, unspecified

== ENCOUNTER → 2025-04-14 09:47 | Outpatient (BNVA) | payer OTHER, SELFPAY | PROVIDERS: PCP Internal Medicine; Visit Provider Internal Medicine | DX: K29.00 Acute gastritis without bleeding (principal); E66.9 Obesity, unspecified; R10.9 Unspecified abdominal pain; E55.9 Vitamin D deficiency, unspecified; M50.90 Cervical disc disorder, unspecified, unspecified cervical region; L20.9 Atopic dermatitis, unspecified; R10.13 Epigastric pain; Z68.34 Body mass index [BMI] 34.0-34.9, adult | CPT/HCPCS: 96127; 99212 ==

== ENCOUNTER 2025-08-13 09:31 | Outpatient (REF) | payer OTHER, SELFPAY ==
--- NOTE | ~2025-08-13 | FL_ITS ---
EXAMINATION: XR FLUOROSCOPY UPPER GI SERIES CLINICAL INFORMATION: 29-year-old male describes epigastric pain, and feeling of distention and bloating after eating. Reflux type symptoms. COMPARISON: No prior. TECHNIQUE: Fluoroscopic air contrast upper GI examination was performed utilizing standard techniques with thin and thick barium and effervescent granules. Numerous spot images were obtained. Several fluoroscopic image hold cine sequences were also obtained. FINDINGS: UPPER GI SERIES: Lateral cine images of the oropharynx and hypopharynx demonstrate normal swallow mechanism with normal epiglottic inversion and soft palate elevation. No laryngeal penetration, glottic or subglottic aspiration identified. Hypopharyngeal structures appear normal without evidence of mass or diverticulum. There was no significant cricopharyngeal achalasia. Dual and single contrast images of the esophagus demonstrate normal caliber, contour, and mucosal pattern. No evidence of stricture, mass, or ulcerations identified. Esophageal peristalsis was minimally disordered. There was a feline contraction pattern noted, suggestive of chronic reflux. Tiny type I hiatus hernia identified. There was episodic gastroesophageal reflux to the level of the thoracic inlet. Dual contrast and single contrast images of the stomach demonstrated normal contour and mucosal pattern without evidence of mass, ulceration, or other abnormality. Normal gastric rugal fold pattern. Contrast passage into the duodenal bulb was significantly delayed, raising the possibility of gastroparesis. Single and air-contrast images of the duodenal bulb demonstrate no abnormality. The duodenal sweep has a normal course and appearance. FLUOROSCOPY TIME: 3 minutes, 36 seconds Number of Spot Images:14 Number of cines obtained: 9 DOSE AREA PRODUCT: [id number] uGy-m2 (microgray-meter squared) FL/FL upper GI w air IMPRESSION: 1. Minimally disordered esophageal peristalsis. Feline contraction pattern present in keeping with chronic reflux. 2. Episodic gastroesophageal reflux identified to the level of the thoracic inlet. 3. Tiny type I hiatus hernia. 4. Delayed contrast passage into the duodenal bulb and duodenum noted, raising the possibility of gastroparesis. Electronically signed by: Zain Kamara MD 08/13/2025 11:13 AM [facility] [place]
--- OUTSIDE RECORDS SUMMARY | 2025-08-13 10:26 | XMS_ITS | Data Portability ---
Author Organization [place] - [facility], Allergy Address [address] [place] [address] Care Team Providers Care Dairy Farm Supervisor Name Role Phone DEANNE NUÑEZ Referring Provider [...] ast No observ ation record ed. reppsteiner [facility] 704 [facility] 100, [place], [address], 07/12/2024 08:57:14 07/12/20 24 07/12/2023 CT, neck, soft tissu e, w/o contr ast No observ ation record ed. reppsteiner Not Available 01/2024 09:04:33 Result Notes None recorded. Problems Name Problem SNOMED Code Status Onset Date Resolution Date Notes Provider Name and Address Organization Details Recorded Time Disorder of the larynx 43338875 Active 024 MARCOS BARTHOLOMEW MD 100 [facility] 100, [place], [address] , [place] - [facility] 4 11:49:29 Neck pain 90169786 Active 024 MARCOS BARTHOLOMEW MD [address] [place] [address], [place], [address] , [facility] 11:49:35 Problem Notes None recorded. Procedures Surgical History Date Name Laterality Status Provider Name and Address Organization Details Recorded Time 07/11/2024 FFL_RE completed MARCOS BARTHOLOMEW MD [address] [place] [address], [place], [address], [facility] 07/11/2024 11:49:39 Imaging Results None recorded. Procedure Notes None recorded. Medical Equipment None Reported. Medications Name Sig Start Date Stop Date Status Note LastModified by Organization Details LastModified Time triamcinolone acetonide 0.5 % topical cream active Not Available Not Availabl e Not Available Vitals Date Recorded Body height Body mass index (BMI) Body weight Provider Name and Address Organization Details Last Updated DateTime 07/11/2024 185.42 cm 39.6 kg/m2 761803.71 g Erin oTrres [facility] 07/11/2024 11:28:26 Social History None recorded. Functional Status None recorded. Mental Status None recorded. Family History Nothing Reported. Medical History No medical history recorded. Past Encounters Encounter ID Performer Location Encounter Start Date Encounter Closed Date Diagnosis/Indication Diagnosis SNOMED-CT Code Diagnosis ICD10 Code Diagnosis IMO Codes Diagnosis Note [id number] MARCOS BARTHOLOMEW MD [facility] [address] [address] 07/11/2024 11:10:11 07/11/2024 12:01:59 Disorder of the larynx 32435009 J38.7 He may have had a muscle spasm of a strap or other neck muscle. Exam of larynx today including external neck exam and laryngosco py are normal. I gave ressurance and recommend observatio n. Neck pain 98054973 M54.2 resolved Health Concerns Section Related Observation LastModified by Organization Detai ls LastModified Time None Recorded Concern Status LastModified by Organization Details LastModified Time None Recorded Advance Directives Directive None Recorded Payers Insurance Date Sequence Insurance Name Policy Number Policy Lee Covered Member ID Lee Member ID Guarantor Name 07/12/2024 1 [facility] [id number] Andrea Sim [id number] Andrea Sim Notes Date Note Type Note Provider Name and Address Organization Details Recorded Time 07/11/2024 text/html ROS as noted in the HPI 1 year ago when he was stretching [...] cannabis. He had some CT scans at [facility]. No dysphagia. No current voice change. MARCOS BARTHOLOMEW MD [address] [place] [address], [place], [address], [place] [facility] 07/11/2024 12:02:34
== END 2025-08-13 09:32 | disposition home or self-care (01) ==
LOC: HO.XRAY 09:31
PROVIDERS: PCP Internal Medicine; Visit Provider Internal Medicine
DX: R10.13 Epigastric pain (principal); K29.00 Acute gastritis without bleeding
CPT/HCPCS: 74246

== ENCOUNTER → 2025-08-13 09:35 | Outpatient (BNV) | payer OTHER, SELFPAY | PROVIDERS: PCP Internal Medicine; Visit Provider Radiology Diagnostic Radiology | DX: R10.13 Epigastric pain (principal) | CPT/HCPCS: 74246 ==

== ENCOUNTER 2025-08-21 09:41 | Outpatient (AMB) | payer OTHER, SELFPAY ==
[2025-08-21 09:48] VITALS: BP 120/80; PULSE 93; O2SAT 97; BMI 35.9
--- NOTE | 2025-08-21 09:48 | A.OFFPC_ITS ---
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 Accompanied by: Self / Same As Patient Allergies No Known Allergies Allergy (Verified 08/21/25 10:11) Medication List - Last Reconciled 08/21/25 by Fausto Man MD cholecalciferol (vitamin D3) 50 mcg PO DAILY 90 days omeprazole 20 mg PO DAILY tacrolimus 0.1% 1 appl topical BID Tobacco use date assessed: 08/21/25 Dental Screening Dental Screen Date: 08/21/25 Did you have a dental visit in the last 12 months?: No Did you have a dental problem in the last 6 months where you did not have access to dental care?: No Was dental information given to patient?: No HPI epigastric pain HPI Details - The patient is a 29 year old male pres enting with follow-up for stomach issues and new onset hemoptysis. - He has a history of chronic reflux con firmed by an upper GI study earlier this month, which also showed a type 1 hiatal hernia and suggested possible gastroparesis. - He was taking his reflux medication tw ice a day but developed very soft stools, so he reduced the frequency to once daily in the morning, which has improved his symptoms. - He no longer needs to take Tums while on the medication. - Recently, he started spitting up a ramana y small amount of blood mixed with saliva on a few occasions, including upon waking, after eating, after dancing, and after a bowel movement. - He describes an iron taste, and the bl eeding resolves within five minutes, especially after drinking cold water. - He has a history of tonsil stones and started using a humidifier to see if dry air was a contributing factor. - He denies any unusual coughing or sixto thing problems. - Lab work from earlier this year showed low vitamin D and a slightly elevated liver enzyme. [facility] Medical History Cervical disc disease Vitamin D deficiency Gastritis Obesity (BMI 30-39.9) Atopic dermatitis Surgical History Hx of peritonsillar abscess drainage Family History Paternal Grandfather Prostate cancer Social History Housing: Condominium Alcohol intake: never Patient Tobacco Use Status: Never used Tobacco e-Cigarette/Vaping Use: Never Used Substance Use Type: Marijuana service: No Current occupational status: employed Cognitive needs: No Hearing needs: No Vision needs: No Questionnaire PHQ-9 Over the last 2 weeks, how often have you been bothered by any of the following problems? 1. Little interest or pleasure in doing things: not at all 2. Feeling down, depressed, or hopeless: not at all 3. Trouble falling or staying asleep, or sleeping too much: not at all 4. Feeling tired or having little energy: not at all 5. Poor appetite or overeating: not at all 6. Feeling bad about yourself - or that you are a failure or have let yourself or your family down: not at all 7. Trouble concentrating on things, such as reading the newspaper or watching television: not at all 8. Moving or speaking so slowly that other people could have noticed. Or the opposite - being so fidgety or restless that you have been moving around a lot more than usual: not at all 9. Thoughts that you would be better off or of hurting yourself in some way: not at all Total score: 0 Depression Screening Interpretation: Negative Depression Screening Done: Yes 83163 - PHQ-9 Billing: Yes Source: Developed by Drs. Vance Bates, Daniella Tesfaye, Waldemar Estrada and colleagues, with an educational jeremiah from [employer]. Thrive Questionnaire Date Thrive assessed: 08/21/25 I am a: Patient What is your living situation today?: I have a steady place to live Within the past 12 months, did the food you bought not last and you didn't have the money to get more?: Never true Within the past 12 months, did you worry whether your food would run out before you got money to buy more?: Never true Do you have trouble paying for medicines?: No Do you have trouble getting transportation to medical appointments?: No Do you have trouble paying your heating and electricity bill?: No Do you have trouble taking care of your child, family member or friend?: No Do you have trouble with day-to-day activities such as bathing, preparing meals, shopping, managing finances, etc.?: No Are you currently unemployed and looking for a job?: No Are you interested in more education?: Yes Please select the resources that you would like help with: None Currently or been in a relationship where the following occur: No concerns reported THRIVE Score: 0 AUDIT C Alcohol Use Questionnaire (AUDIT-C) 1. How often do you have a drink containing alcohol?: Monthly or less 2. How many drinks containing alcohol do you have on a typical day when you are drinking?: 1 or 2 3. How often do you have six or more drinks on one occasion?: Never Total Score: 1 Score Reviewed/Action Taken: Yes CASIE-7 AMB Questionnaire CASIE-7 Date CASIE - 7 assessed: 08/21/25 Feeling nervous, anxious, or on edge: 0 = Not at all Not being able to stop or control worryin = Not at all Worrying too much about different things: 0 = Not at all Trouble relaxin = Not at all Being so restless that it is hard to sit still: 0 = Not at all Becoming easily annoyed or irritable: 0 = Not at all Feeling afraid as if something awful might happen: 0 = Not at all Total CASIE-7 score (0-4 normal; 5-9 mild; 10-14 moderate; 15-21 severe): 0 Source: Developed by Drs. Vance Bates, Daniella Tesfaye, Waldemar Estrada and colleagues, with an educational jeremiah from [employer]. Review of Systems Const Denies chills, Denies fatigue, Denies fever(s) and Denies headache(s) ENT Denies dysphagia, Denies dizziness, Denies otalgia, Denies headache(s), Denies neck pain, Denies odynophagia and Denies sore throat Card Denies chest pain, Denies rapid heart rate, Denies irregular heart rhythm, Denies palpitations and Denies dyspnea Resp Denies chest congestion, Denies cough, Reports hemoptysis (occasionally recently - see HPI for details) and Denies dyspnea GI Denies abdominal pain, Denies bloating, Denies constipation, Denies dysphagia, Denies heartburn, Denies diarrhea, Denies nausea, Denies odynophagia and Denies vomiting Denies difficulty urinating, Denies dysuria and Denies urinary frequency Musc Denies back pain, Denies arthralgias and Denies neck pain Skin/Breast Denies rash Neuro Denies dizziness, Denies headache(s) and Denies paresthesias Endo Denies fatigue and Denies palpitations Physical exam (Primary Care) Vital Signs: Last Vital Signs Pulse 93 08/21/25 09:48 BP 120/80 08/21/25 09:48 Pulse Ox 97 08/21/25 09:48 Oxygen Delivery Method Room Air 08/21/25 09:48 BMI result Body Mass Index 35.9 Tobacco/Smoking Status: Tobacco use Status Tobacco use date assessed 08/21/25 08/21/25 09:53 Patient Tobacco Use Status Never used Tobacco 08/21/25 09:53 e-Cigarette/Vaping Use Never Used 08/21/25 09:53 PHQ-9: PHQ-9 Score PHQ-9: Total score 0 08/21/25 22:53 Depression Screening Interpretation: Negative Thrive Assessment: Date of Thrive Assessment Date Thrive assessed 08/21/25 08/21/25 09:53 Currently or been in a relationship where the following occur: No concerns reported Const General: no acute distress and alert HENMT Throat: Yes posterior oropharynx normal and Yes tonsils normal (no TP congestion) Neck Neck: Yes supple and No lymphadenopathy Thyroid: Thyroid normal Resp Auscultation: clear to auscultation bilaterally, no rales and no wheezes Cardio Rate: regular rate Rhythm: regular rhythm Heart sounds: no murmurs GI Palpation (GI): Soft to palpation and nontender Auscultation: normal bowel sounds General: Yes no CVA tenderness Back/Spine/Pelvis Back: no CVA tenderness Thoracic/Lumbar Spine: No lumbar spinal tenderness Skin Rashes: no rashes Extrem General: Yes no clubbing, cyanosis or edema Coding Level of Care Code Est Pt Level 4 (77368) Diagnoses Other acute gastritis without hemorrhage K29.00 Gastritis type: other gastritis Chronicity: acute Gastritis bleeding: without bleeding Vitamin D deficiency E55.9 Cervical disc disease M50.90 Elevated LFTs R79.89 Atopic dermatitis, unspecified type L20.9 Atopic dermatitis type: unspecified Obesity (BMI 30-39.9) E66.9 Additional Codes PHQ-9 - 72086 - PHQ-9 Billing: Yes ([id number]) Assessment & Plan Assessment & Plan (1) Gastritis: Code(s): K29.70 - Gastritis, unspecified, without bleeding Category: Medical Qualifiers: Gastritis type: other gastritis Chronicity: acute Gastritis bleeding: without bleeding Qualified Code(s): K29.00 - Acute gastritis without bleeding Plan: Dietary restrictions reinforced Continue Omeprazole 20 mg QD - patient states that his GI symptoms are well- controlled at present Upper GI series done last week revealed (+) minimally disordered esophageal peristalsis. Feline contraction pattern consistent with chronic reflux, with episodic gastroesophageal reflux identified to the level of the thoracic inlet. (+) tiny type I hiatus hernia and delayed contrast passage into the duodenal bulb and duodenum noted, raising the possibility of gastroparesis Have advised patient that if his symptoms recur respite his current Rx, then we may need to refer him to GI for consideration for EGD (2) Vitamin D deficiency: Code(s): E55.9 - Vitamin D deficiency, unspecified Category: Medical Plan: Continue Vitamin D3 2000 units QD His Vitamin D level was improving on his labs done back in January 2025 (3) Cervical disc disease: Code(s): M50.90 - Cervical disc disorder, unspecified, unspecified cervical region Category: Medical Plan: Soft tissue neck CT done in July 2023 revealed findings of moderate degenerative disc disease at C3-C4 and mild degenerative disc disease at C4-C5 but her cervical spine x-rays done in September 2024 revealed NO significant degenerative changes Patient has been advised of massage therapy when needed and to avoid chiropractic manipulation of his cervical spine as much as possible (4) Elevated LFTs: Code(s): R79.89 - Other specified abnormal findings of blood chemistry Category: Medical Plan: His serum ALT was elevated on his labs back in January 2025 and is likely related to his weight We will recheck his labs and LFTs for follow up in December 2025 just before he returns for his annual physical exam then (5) Atopic dermatitis: Comment: Will give patient prednisone taper. Patient has been instructed to continue using triamcinolone for topical spot treatment. Patient has been instructed to follow-up in the walk-in clinic if does not notice improvement over the next 3 days. Code(s): L20.9 - Atopic dermatitis, unspecified Category: Medical Qualifiers: Atopic dermatitis type: unspecified Qualified Code(s): L20.9 - Atopic dermatitis, unspecified Plan: Continue Triamcinolone acetonide 0.5% cream apply to rash BID-TID PRN (6) Obesity (BMI 30-39.9): Code(s): E66.9 - Obesity, unspecified Category: Medical Plan: Reinforced diet/exercise as tolerated/lose weight Plan To return as scheduled in December 2025 for his next annual physical examination Orders: Orders Complete Blood Count Auto Diff 12/27/25 D64.9 - Anemia, unspecified, Z00.00 - Encounter for general adult medical examination without abnormal findings Comprehensive [place]. Panel Fast 12/27/25 E78.00 - Pure hypercholesterolemia, unspecified, Z00.00 - Encounter for general adult medical examination without abnormal findings Lipid Panel 12/27/25 E78.00 - Pure hypercholesterolemia, unspecified, Z00.00 - Encounter for general adult medical examination without abnormal findings TSH reflex Free T4 12/27/25 E78.00 - Pure hypercholesterolemia, unspecified, Z00.00 - Encounter for general adult medical examination without abnormal findings UA CC w/rflx Micro + Cult 12/27/25 R30.0 - Dysuria, Z00.00 - Encounter for general adult medical examination without abnormal findings Vitamin D 25-OH Total 12/27/25 E55.9 - Vitamin D deficiency, unspecified, Z00.00 - Encounter for general adult medical examination without abnormal findings
== END 2025-08-21 11:09 | disposition home or self-care (01) ==
LOC: HO.HMCH 09:42
PROVIDERS: PCP Internal Medicine; Visit Provider Internal Medicine
DX: K29.00 Acute gastritis without bleeding (principal); E55.9 Vitamin D deficiency, unspecified; E66.9 Obesity, unspecified; Z68.35 Body mass index [BMI] 35.0-35.9, adult; M50.90 Cervical disc disorder, unspecified, unspecified cervical region; R79.89 Other specified abnormal findings of blood chemistry; L20.9 Atopic dermatitis, unspecified

== ENCOUNTER → 2025-08-21 09:41 | Outpatient (BNVA) | payer OTHER, SELFPAY | PROVIDERS: PCP Internal Medicine; Visit Provider Internal Medicine | DX: K29.00 Acute gastritis without bleeding (principal); Z13.31 Encounter for screening for depression; M50.90 Cervical disc disorder, unspecified, unspecified cervical region; R79.89 Other specified abnormal findings of blood chemistry; L20.9 Atopic dermatitis, unspecified; E55.9 Vitamin D deficiency, unspecified; E66.9 Obesity, unspecified; Z13.39 Encounter for screening examination for other mental health and behavioral disorders | CPT/HCPCS: 96127; 99212 ==

== ENCOUNTER 2025-08-29 09:55 | Outpatient (REF) | payer OTHER, SELFPAY ==
--- OUTSIDE RECORDS SUMMARY | 2025-08-29 16:23 | XMS_ITS | Data Portability ---
Author Organization [place] - [facility], Allergy Address [address] [place] [id number] Care Team Providers Care [employer] [facility] Aide Name Role Phone DEANNE NUÑEZ Referring Provider [...] ast No observ ation record ed. [email or web address] [facility] [address] [facility] [address], [place], [address], 07/12/2024 08:57:14 07/12/20 24 07/12/2023 CT, neck, soft tissu e, w/o contr ast No observ ation record ed. [email or web address] Not Available 01/2024 09:04:33 Result Notes None recorded. Problems Name Problem SNOMED Code Status Onset Date Resolution Date Notes Provider Name and Address Organization Details Recorded Time Disorder of the larynx 85979122 Active 024 MARCOS BARTHOLOMEW MD [address] [facility] [address], [place] [place], [phone] , [place] - [facility] 4 11:49:29 Neck pain 67578989 Active 024 MARCOS BARTHOLOMEW MD [address] [place] [address], [place], [phone] , [facility] 11:49:35 Problem Notes None recorded. Procedures Surgical History Date Name Laterality Status Provider Name and Address Organization Details Recorded Time 07/11/2024 FFL_RE completed MARCOS BARTHOLOMEW MD [address] [place] [address], , [phone], [facility] 07/11/2024 11:49:39 Imaging Results None recorded. Procedure [...] Updated DateTime 07/11/2024 185.42 cm 39.6 kg/m2 964112.71 g Erin Torres [facility] 07/11/2024 11:28:26 Social History None recorded. Functional Status None recorded. Mental Status None recorded. Family History Nothing Reported. Medical History No medical history recorded. Past Encounters Encounter ID Performer Location Encounter Start Date Encounter Closed Date Diagnosis/Indication Diagnosis SNOMED-CT Code Diagnosis ICD10 Code Diagnosis IMO Codes Diagnosis Note [id number] MARCOS BARTHOLOMEW MD [facility] [address] [phone] 07/11/2024 11:10:11 07/11/2024 12:01:59 Disorder of the larynx 73149046 J38.7 He may have had a muscle spasm of a strap or other neck muscle. Exam of larynx today including external neck exam and laryngosco py are normal. I gave ressurance and recommend observatio n. Neck pain 65079480 M54.2 resolved Health Concerns Section Related Observation LastModified by Organization Detai ls LastModified Time None Recorded Concern Status LastModified by Organization Details LastModified Time None Recorded Advance Directives Directive None Recorded Payers Insurance Date Sequence Insurance Name Policy Number Policy Lee Covered Member ID Lee Member ID Guarantor Name 07/12/2024 1 [facility] [place] [id number] Andrea Sim [id number] Andrea Sim Notes Date Note Type [...] had some CT scans at [facility]. No dysphagia. No current voice change. MARCOS BARTHOLOMEW MD [address] [place] [address], , [phone], [place] [facility] 07/11/2024 12:02:34
[2025-08-29 16:32] LABS: Resp Syncy Virus RNA Qual PCR NEGATIVE (Negative); SARS COV2 PCR INHOUSE NEGATIVE (Negative)
== END 2025-08-29 09:56 | disposition home or self-care (01) ==
LOC: HO.LNP 09:55
PROVIDERS: PCP Internal Medicine; Visit Provider Physician Assistant
DX: J11.1 Influenza due to unidentified influenza virus with other respiratory manifestations (principal)
CPT/HCPCS: 87637; 99212

== ENCOUNTER 2025-08-29 09:55 | Outpatient (AMB) | payer OTHER, SELFPAY ==
--- NOTE | 2025-08-29 10:04 | MHC.OFFWIV ---
Intake Vital Signs 08/29/25 10:05 Height 6 ft 1 in Weight 272 lb BMI 35.9 BP 118/76 Blood Pressure Location Rt brachial Position Sitting Pulse 95 Pulse Source Pulse Oximeter Temp 99.1 F Temp Source Oral Pulse Oximetry (%) 96 Oxygen Delivery Method Room Air Intake Visit Reasons: EP Fever, cough, body aches, eye pain Intake Note: Patient presents c/o fever, headache, phlegm, cough, fatigue, hot/cold, body aches, sinus pressure x2 days. Patient Tobacco Use Status: Never used Tobacco Allergies No Known Allergies Allergy (Verified 08/29/25 10:07) HPI HPI Comments History of Present Illness Details He presents to office with cold symptoms Monday started with symptoms Roommate is sick since the weekend and + influenza Monday at noon + quick onset of fatigue, body aches, fever, chills + congestion, cough with phlegm (yellow to dark yellow) He said + ST without ear pain He has tried Mucinex, vitamins without relief No BM today + soup and decreased appetite + nausea without vomiting PFSH Medical History Cervical disc disease Vitamin D deficiency Gastritis Obesity (BMI 30-39.9) Atopic dermatitis Surgical History Hx of peritonsillar abscess drainage Family History Paternal Grandfather Prostate cancer Social History Housing: Condominium Alcohol intake: never Patient Tobacco Use Status: Never used Tobacco e-Cigarette/Vaping Use: Never Used Substance Use Type: Marijuana service: No Current occupational status: employed Cognitive needs: No Hearing needs: No Vision needs: No Review of Systems Const Reports body aches, Reports chills, Reports fatigue and Reports fever(s) ENT Denies dizziness, Denies otalgia, Reports nasal congestion, Reports sore throat and Denies tongue swelling Card Denies chest pain, Denies syncope and Denies dyspnea Resp Reports cough, Denies dyspnea and Reports wheezing (the other day; none currently) GI Reports heartburn (hx of), Denies diarrhea, Reports nausea and Denies vomiting Musc Reports myalgias Neuro Denies dizziness and Denies syncope Endo Reports fatigue Aller/Immun Denies tongue swelling and Reports wheezing (the other day; none currently) Physical Exam Exam Exam: General: Non-toxic, NAD. Speaking full sentences. Skin: Warm dry throughout Eye: EOMI HENT: Airway patent. Uvula midline. No pharyngeal erythema or edema. 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 + clear rhinorrhea Bilateral canals clear. TM non-erythematous, non-bulging. No TM perforation or hemotympanum noted. Respiratory: CTA bilaterally. No wheezes, rales or rhonchi Cardiac: RRR. No murmur MSK: Full ROM extremities. Neurology: Alert. No aphasia or facial droop. Gait without abnormality Psych: Good mood and affect Vital Signs: Last Vital Signs Temp 99.1 F 08/29/25 10:05 Pulse 95 08/29/25 10:05 BP 118/76 08/29/25 10:05 Pulse Ox 96 08/29/25 10:05 Oxygen Delivery Method Room Air 08/29/25 10:05 BMI result Body Mass Index 35.9 Assessment & Plan Assessment & Plan (1) Influenza-like illness: Code(s): J11.1 - Influenza due to unidentified influenza virus with other respiratory manifestations Plan: Patient seen and evaluated. Lungs CTA He has influenza exposure 48 hours presents after onset of symptoms COVID/Flu/RSV ordered and obtained Tessalo and Tamiflu to pharmacy for pt Increase fluids, tylenol/motrin for bodyaches and fevers Rest Declined work note Patient gave verbal understanding and had no additional questions or concerns at time of discharge All questions answered Orders: Orders SARS-CoV2/FLU/RSV Today J11.1 - Influenza due to unidentified influenza virus with other respiratory manifestations Medications: New benzonatate 100 mg PO BID-TID PRN 14 caps 0RF cough oseltamivir (Tamiflu) 75 mg PO BID 10 caps 0RF 5 days Coding Level of Care Code Est Pt Level 3 (44180) Diagnoses Influenza-like illness J11.1
[2025-08-29 10:05] VITALS: BP 118/76; PULSE 95; TEMP 37.3; O2SAT 96; BMI 35.9
== END 2025-08-29 10:57 | disposition home or self-care (01) ==
PROVIDERS: PCP Internal Medicine; Visit Provider Physician Assistant
DX: J11.1 Influenza due to unidentified influenza virus with other respiratory manifestations (principal)